=== PATIENT | male | born 1955 | race Caucasian/White ===

== ENCOUNTER 2020-01-03 08:15 | Outpatient (CLI) | payer MEDICARE, OTHER, SELFPAY ==
--- NOTE | ~2020-01-03 | US_ITS ---
EXAMINATION: US carotid duplex BI DATE: 01/03/2020 08:47 INDICATION: Right carotid bruit. TECHNIQUE: Grayscale, color Doppler, and pulsed Doppler images of the cervical carotid arteries were obtained. The degree of vessel stenosis is placed in one of the following categories: normal, <50%, 5 0-69%, >=70% but less than near-occlusion, near-occlusion, or total occlusion. Note that percent sten osis relative to normal distal artery lumen diameter is indirectly measured from velocity measurement s as described by Yvan, et al. Radiology 2003; 229:340-346. COMPARISON: MRA neck 12/19/2011 FINDINGS: RIGHT: The right common carotid artery (CCA) peak systolic velocity (PSV) is 101 cm/s. The right internal ca rotid artery (ICA) PSV is 108 cm/s. The right ICA end-diastolic velocity (EDV) is 30 cm/s. The right ICA/CCA PSV ratio is 1.1. Grayscale and color Doppler images yield an estimate of 0% diameter reducti on from plaque in the ICA. There is antegrade flow in the right vertebral artery. LEFT: The left CCA PSV is 104 cm/s. The left ICA PSV is 100 cm/s. The left ICA EDV is 35 cm/s. The left ICA /CCA PSV ratio is 1.0. Grayscale and color Doppler images yield an estimate of 0% diameter reduction from plaque in the ICA. There is antegrade flow in the left vertebral artery. IMPRESSION: 1. Normal internal carotid arteries. Reviewed, dictated and finalized at location A.
== END 2020-01-03 08:16 | disposition home or self-care (01) ==
PROVIDERS: PCP Internal Medicine; Visit Provider Internal Medicine
DX: R09.89 Other specified symptoms and signs involving the circulatory and respiratory systems (principal)
CPT/HCPCS: 93880

== ENCOUNTER 2020-08-25 14:31 | Outpatient (CLI) | payer MEDICARE, SELFPAY ==
[2020-08-25 15:32] LABS: SARS-CoV-2 Ag Negative (Negative)
[2020-08-28 18:27] LABS: SARS-CoV-2 RNA PCR Negative
== END 2020-08-25 14:32 | disposition home or self-care (01) ==
LOC: CHSLAB 14:33
PROVIDERS: PCP Internal Medicine; Visit Provider Internal Medicine
DX: R05 Cough (principal); R09.81 Nasal congestion; Z20.822 Contact with and (suspected) exposure to COVID-19
CPT/HCPCS: 87426; C9803; U0003; U0005

== ENCOUNTER 2020-08-29 10:00 | Outpatient (CLI) | payer MEDICARE, OTHER, SELFPAY ==
--- NOTE | ~2020-08-29 | CT_ITS ---
EXAMINATION: CT sinus wo con DATE: 08/29/2020 10:25 INDICATION: Chronic sinusitis TECHNIQUE: Computed tomography (CT) of the paranasal sinuses was performed without intravenous contra st. The dose-length product was 306.67 mGy-cm. Automated exposure control and iterative reconstructio n technique were employed. COMPARISON: CT dated 12/18/2011 FINDINGS: There is mucosal thickening of the ethmoid, sphenoid and maxillary sinuses. There is leftwa rd nasal septal deviation. There is right-sided ree bullosa. There are surgical changes of the ost iomeatal units. Mastoids are pneumatized. There is a scalp mass which is partially calcified at the m idline measuring 2.3 cm greatest dimension AP x1.6 cm on prior examination. IMPRESSION: 1. Mild chronic sinus disease primarily involving the ethmoid and maxillary sinuses. 2: Slight interval enlargement of scalp mass which is partially calcified. Consider percutaneous bio psy. Reviewed, dictated and finalized at location B. BODY MAN IMPRESSION: 1. Mild chronic sinus disease primarily involving the ethmoid and maxillary sin uses. 2: Slight interval enlargement of scalp mass which is partially calcified. Con larder cook percutaneous biopsy.
== END 2020-08-29 10:01 | disposition home or self-care (01) ==
LOC: CHSIMG 10:03
PROVIDERS: PCP Internal Medicine; Visit Provider Internal Medicine
DX: J32.9 Chronic sinusitis, unspecified (principal)
CPT/HCPCS: 70486

== ENCOUNTER → 2020-10-17 07:39 | Outpatient (CLI) | payer MEDICARE, OTHER, SELFPAY ==
--- NOTE | ~2020-10-17 | US_ITS ---
EXAMINATION: US right upper quadrant EXAM DATE: 10/17/2020 08:12 INDICATION: Epigastric pain. TECHNIQUE: Multiple grayscale and Doppler images of the abdomen right upper quadrant were obtained (b y a technologist who performed the scan) and subsequently reviewed. Comparison is made to prior exami nation from 09/08/2018. FINDINGS: The pancreatic head and body are normal in appearance. The pancreatic tail is not visualized. The l iver has normal echogenicity and contour. There are no focal liver lesions identified. There is no evidence of intrahepatic biliary duct dilation. Portal venous flow was seen in the hepatopedal, nor mal direction and has normal Doppler waveform. No right-sided hydronephrosis. Common bile duct measures 6 mm, which is normal. The gallbladder fossa is unremarkable. IMPRESSION: 1. Unremarkable abdominal ultrasound exam. Reviewed, dictated and finalized at location A.
== END ==
DX: R10.13 Epigastric pain (principal)
CPT/HCPCS: 76705

== ENCOUNTER 2021-08-06 15:08 | Outpatient (CLI) | payer MEDICARE, OTHER, SELFPAY ==
--- NOTE | ~2021-08-06 | XR_ITS ---
EXAMINATION: XR chest 2V DATE: 08/06/2021 15:31 INDICATION: Chronic cough. TECHNIQUE: Frontal and lateral views of the chest were obtained. COMPARISON: Chest single view 02/01/2016 FINDINGS: There is mild scarring at the lung apices. No pleural effusion or pneumothorax. The heart s ize is normal. Surgical clips in the right upper quadrant are likely from cholecystectomy. IMPRESSION: 1. Mild scarring at the lung apices. Reviewed, dictated and finalized at location A. ONATION EQUIPMENT OPERATOR
[2021-08-06 15:35] LABS: Basophils Absolute Auto 0.04 K/mm3 (0.00-0.10); Basophils Percent Auto 0.7 % (0.0-1.0); Eosinophils Absolute Auto 0.21 K/mm3 (0.02-0.50); Eosinophils Percent Auto 3.8 % (1.0-6.0); Hemoglobin 15.1 g/dL (12.4-15.3); Immature Granulocyte Absolute 0.01 K/mm3 (0.00-0.00); Immature Granulocyte Percent A 0.2 % (0.0-0.0); Lymphocytes Absolute Auto 1.83 K/mm3 (1.10-4.50); Lymphocytes Percent Auto 33.3 % (18.0-42.0); Mean Corpuscular HGB Conc 33.6 g/dL (32.0-36.0); Mean Corpuscular Hemoglobin 30.3 pg (27.0-31.0); Mean Corpuscular Volume 90.4 fL (78.0-102.0); Mean Platelet Volume 11.8 fl (8.7-11.0); Monocytes Absolute Auto 0.59 K/mm3 (0.10-0.90); Monocytes Percent Auto 10.7 % (2.0-11.0); Neutrophils Absolute Auto 2.8 K/mm3 (1.7-7.2); Neutrophils Percent Auto 51.3 % (50.0-70.0); Platelet Count Result 151 K/mm3 (150-420); Red Blood Count 4.98 M/mm3 (4.70-6.10); Red Cell Distribution Width 12.5 % (11.6-14.4)
[2021-08-06 15:46] LABS: White Blood Count 5.5 K/mm3 (4.8-10.8)
[2021-08-09 00:29] LABS: Immunoglobulin E 23 kU/L (<=114)
== END 2021-08-06 15:09 | disposition home or self-care (01) ==
LOC: CHSLAB 15:10
PROVIDERS: PCP Internal Medicine; Visit Provider Internal Medicine
DX: R05.3 Chronic cough (principal); J32.9 Chronic sinusitis, unspecified
CPT/HCPCS: 36415; 71046; 82785; 85025

== ENCOUNTER 2021-08-21 10:00 | Outpatient (RCR) | payer MEDICARE, OTHER, SELFPAY | END 2021-11-13 23:59 | disposition home or self-care (01) | LOC: CHSCARD 10:00 | PROVIDERS: PCP Internal Medicine; Visit Provider Internal Medicine | DX: R05.3 Chronic cough (principal); R06.2 Wheezing | CPT/HCPCS: 94060; 94726; 94729; 95012 ==

== ENCOUNTER 2021-12-14 16:35 | Outpatient (CLI) | payer MEDICARE, SELFPAY ==
[2021-12-14 17:44] LABS: SARS-CoV-2 RNA PCR Positive (Negative)
== END 2021-12-14 16:36 | disposition home or self-care (01) ==
LOC: CHSLAB 16:39
PROVIDERS: PCP Internal Medicine; Visit Provider Nurse Practitioner Family
DX: U07.1 COVID-19 (principal); J06.9 Acute upper respiratory infection, unspecified; R50.9 Fever, unspecified
CPT/HCPCS: C9803; U0003; U0005

== ENCOUNTER 2022-01-29 12:14 | Outpatient (CLI) | payer MEDICARE, OTHER, SELFPAY ==
--- NOTE | 2022-02-18 15:01 | WPDHOLTEREM ---
Holter/Event Monitor Holter/Event Monitor Date of procedure: 02/18/22 Holter/Event Procedure: Event Monitor Indications: Palpitations Conclusion: 1. 9 days event monitor between 01/29/22-02/09/22. There are 15 available transmissions for analysis. 2. Predominant rhythm is sinus rhythm. HR range 50-147 bpm; average HR 74 bpm. 3. There are occasional premature supraventricular complexes with total burden of <1%. There is one episode of supraventricular tachycardia at 147 bpm lasting 17 beats on 02/06/22 at 03:20. 4. There are occasional premature ventricular complexes with total burden of <1%. No ventricular tachycardia. 5. No significant pauses greater than 2 seconds. 6. Patient reports 1 episode of symptom other than listed which demonstrate sinus rhythm at 67 bpm.
== END 2022-01-29 12:15 | disposition home or self-care (01) ==
PROVIDERS: PCP Internal Medicine; Visit Provider Internal Medicine
DX: R00.2 Palpitations (principal)
CPT/HCPCS: 93270

== ENCOUNTER → 2022-04-23 07:41 | Outpatient (CLI) | payer MEDICARE, OTHER, SELFPAY ==
--- NOTE | ~2022-04-23 | US_ITS ---
EXAMINATION: US right upper quadrant DATE: 04/23/2022 08:17 INDICATION: Heartburn. Gastroesophageal reflux disease. TECHNIQUE: Multiple grayscale and Doppler ultrasound images of the abdomen were obtained. COMPARISON: Ultrasound 10/17/2020 FINDINGS: The visualized portions of the head and body of the pancreas are normal. The liver is frances l without focal lesion. There is normal flow in main portal vein. The gallbladder is absent. The comm on duct is normal and measures 5 mm. There is a 13 mm cyst in right kidney. IMPRESSION: 1. No etiology for the patient's symptoms. Reviewed, dictated and finalized at location B.
== END ==
PROVIDERS: PCP Internal Medicine
DX: R12 Heartburn (principal)
CPT/HCPCS: 76705

== ENCOUNTER 2022-07-10 01:19 | Emergency (ER) | payer MEDICARE, OTHER, SELFPAY ==
[2022-07-10] VITALS (11 sets, daily range): BP systolic 120–135; BP diastolic 88–110; PULSE 95–124; RESP 10–20; TEMP 36.6; O2SAT 92–100
--- NOTE | ~2022-07-10 | XR_ITS ---
EXAMINATION: XR chest 1V portable DATE: 07/10/2022 02:13 INDICATION: Atrial fibrillation with palpitations TECHNIQUE: frontal view of the chest was obtained. COMPARISON: 08/06/2021 FINDINGS: Again seen is mild biapical pleural-parenchymal scarring. No other airspace opacities, pulmonary irene a, pleural effusion or pneumothorax. The cardiomediastinal silhouette is normal. Visualized bones and soft tissues are unremarkable. IMPRESSION: 1. Mild biapical pleural-parenchymal scarring. No acute cardiopulmonary disease. Reviewed, dictated and finalized at location A. CULTURAL PRODUCE SORTER IMPRESSION: 1. Mild biapical pleural-parenchymal scarring. No acute cardiopulmonary disease .
--- NOTE | 2022-07-10 01:22 | ED.ARRPALP ---
HPI - Arrhythmia/Palpitations General Chief Complaint: Arrhythmia/Palpitations Stated Complaint: tachycardia Time Seen by Provider: 07/10/22 01:21 Source: patient Mode of arrival: ambulatory Limitations: no limitations History of Present Illness HPI narrative: 67-year-old history 80 IBS hypertension dyslipidemia, SVT diagnosed on Holter monitor in February of this presents to the ER with -- palpitation over the past 6 hours. His Apple watch indicated that he had atrial fibrillation. -- Increased tiredness no chest pain /shortness of breath/lightheadedness. Patient had a negative Exercise stress test 4 months ago. MD complaint: rapid heart beat Onset (ago): hour(s) ( Started 6 hours ago) Duration: constant Severity: moderate Context: occurred during rest Arrhythmia history: SVT Associated symptoms: denies other symptoms Related Data Home Medications Medication Instructions Recorded Confirmed alprazolam 0.5 mg tablet 0.5 mg PO .Q8 hours PRN anxiety 06/03/19 dexlansoprazole 60 mg 60 mg PO DAILY 06/03/19 capsule,biphase delayed release (Dexilant) fluticasone propionate 50 1 spray intranasal DAILY 06/03/19 mcg/actuation nasal spray,suspension tamsulosin 0.4 mg capsule 0.4 mg PO DAILY 06/03/19 Allergies Allergy/AdvReac Type Severity Reaction Status Date / Time No Known Allergies Allergy Verified 06/25/19 08:46 Review of Systems Review of Systems: All systems reviewed & are unremarkable except as noted in HPI and below Constitutional: Constitutional: Reports as per HPI, Reports no additional constitutional complaints and Reports weakness Eyes: Eyes: Reports as per HPI and Reports no additional eye complaints ENT: Reports system reviewed and no additional complaints, except as documented and Reports as per HPI Cardiovascular: Cardiovascular: Reports as per HPI, Reports no additional cardiovascular complaints and Reports palpitations Respiratory: Respiratory: Reports as per HPI and Reports no additional respiratory complaints Gastrointestinal: Gastrointestinal: Reports as per HPI and Reports no additional gastrointestinal complaints Genitourinary: Genitourinary: Reports no additional male genitourinary complaints and Reports as per HPI Musculoskeletal: Musculoskeletal: Reports no additional musculoskeletal complaints and Reports as per HPI Integumentary/Breasts: Skin/Breast: Reports system reviewed and no additional complaints, except as docu and Reports as per HPI Neurologic: Reports system reviewed and no additional complaints, except as documented, Reports as per HPI and Reports other ( history of benign essential tremor) Psychiatric: Psychiatric: Reports no additional psychiatric complaints and Reports as per HPI Endocrine: Endocrine: Reports no additional endocrine complaints and Reports as per HPI Hematologic/Lymphatic: Hematologic/Lymphatic: Reports no additional hematologic/lymphatic complaints and Reports as per HPI Allergic/Immunologic: Allergic/Immunologic: Reports no additional allergic/immunologic complaints and Reports as per HPI [facility] Past Medical History Medical History (Updated 07/10/22 @ 03:20 by Jonathan Jean Baptiste MD) Benign essential tremor FAMILIA (generalized anxiety disorder) GERD (gastroesophageal reflux disease) Hypertension IBS (irritable bowel syndrome) SVT (supraventricular tachycardia) Surgical History Surgical History History of cholecystectomy October 2018 History of hernia repair Hx of cataract surgery Social History Social History Smoking status: Never smoker Second hand tobacco smoke exposure: No Alcohol intake: current Drinks per week: 1 Alcohol use details: He typically consumes wine. Substance use: never Additional occupation/education comments: Prior Occupation at [employer]. Gender identity (if verbalized by the
--- NOTE | 2022-07-10 01:24 | ECG_ITS ---
Measurements Intervals [place] Rate: 120 P: [place]: 0 QRS: 2 QRSD: 97 T: 49 QT: 304 QTc: 431 Interpretive Statements ATRIAL FIBRILLATION WITH RAPID VENTRICULAR RESPONSE INCOMPLETE RIGHT BUNDLE BRANCH BLOCK [90+ ms QRS DURATION, TERMINAL R IN V1/V2, 40+ ms S IN I/aVL/V4/V5/V6] ABNORMAL ECG NO PREVIOUS ECG AVAILABLE FOR COMPARISON Electronically Signed On 07-11-2022 7:17:01 ULTRASONIC HAND SOLDERER by Frankie John M.D.
[2022-07-10 01:45] LABS: Basophils Absolute Auto 0.05 K/mm3 (0.00-0.10); Basophils Percent Auto 0.8 % (0.0-1.0); Eosinophils Percent Auto 3.2 % (1.0-6.0); Hematocrit 43.9 % (37.0-46.0); Hemoglobin 14.8 g/dL (12.4-15.3); Immature Granulocyte Absolute 0.01 K/mm3 (0.00-0.00); Immature Granulocyte Percent A 0.2 % (0.0-0.0); Lymphocytes Absolute Auto 1.99 K/mm3 (1.10-4.50); Lymphocytes Percent Auto 32.3 % (18.0-42.0); Mean Corpuscular HGB Conc 33.7 g/dL (32.0-36.0); Mean Corpuscular Hemoglobin 29.8 pg (27.0-31.0); Mean Corpuscular Volume 88.5 fL (78.0-102.0); Mean Platelet Volume 11.7 fl (8.7-11.0); Monocytes Absolute Auto 0.63 K/mm3 (0.10-0.90); Monocytes Percent Auto 10.2 % (2.0-11.0); Neutrophils Absolute Auto 3.3 K/mm3 (1.7-7.2); Neutrophils Percent Auto 53.3 % (50.0-70.0); Platelet Count Result 142 K/mm3 (150-420); Red Blood Count 4.96 M/mm3 (4.70-6.10); Red Cell Distribution Width 12.5 % (11.6-14.4); White Blood Count 6.2 K/mm3 (4.8-10.8)
[2022-07-10 01:59] LABS: Partial Thromboplastin Time 31.2 SEC (23.90-30.70)
[2022-07-10] MEDS: METOPROLOL TARTRATE INJ 5 MG/5 ML VIAL IV PUSH (01:59)
[2022-07-10 02:06] LABS: Lactic Acid Reflex 1.1 mmol/L (0.4-2.0)
[2022-07-10 02:09] LABS: Alanine Aminotransferase 35 U/L (16-63); Albumin Level 3.7 g/dL (3.4-5.0); Alkaline Phosphatase 67 U/L (46-116); Anion Gap 8 mmol/L (8-16); Aspartate Amino Transferase 24 U/L (15-37); Bilirubin,Total 1.7 mg/dL (0.00-1.00); Blood Urea Nitrogen 13 mg/dL (7-18); Calcium 8.7 mg/dL (8.5-10.1); Carbon Dioxide 28 mmol/L (21-32); Chloride 106 mmol/L (98-108); Estimated Glomerular Filt Rate > 60; Glucose 112 mg/dL (70-99); Magnesium 1.9 mg/dL (1.8-2.4); NT Pro B Type Natriuretic Pept 180 pg/mL (0-125); Osmolality Calculated 295 mOsm/kg (285-295); Potassium 3.8 mmol/L (3.5-5.1); Sodium 142 mmol/L (136-145); Thyroid Stimulating Hormone 3.08 uIU/mL (0.36-3.74); Total Protein 6.8 g/dL (6.4-8.2); Troponin I 6.5 ng/L (0.00-60.4)
[2022-07-10] MEDS: dilTIAZem 100 MG/100 ML 100 MG/100 ML BAG IV CONT (03:28)
== END 2022-07-10 04:22 | disposition short-term general hospital (02) ==
PROVIDERS: Emergency Provider Internal Medicine Critical Care Medicine; PCP Internal Medicine
DX: I48.91 Unspecified atrial fibrillation (principal); I10 Essential (primary) hypertension; E78.5 Hyperlipidemia, unspecified; Z79.899 Other long term (current) drug therapy
CPT/HCPCS: 36415; 71045; 80053; 83605; 83735; 83880; 84443; 84484; 85025; 85380; 85610; 85730; 93005; 96365; 96375; 99284

== ENCOUNTER 2022-10-28 09:28 | Outpatient (CLI) | payer MEDICARE, OTHER, SELFPAY ==
[2022-10-28 09:55] LABS: Hematocrit 44.9 % (37.0-46.0); Hemoglobin 14.9 g/dL (12.4-15.3); Mean Corpuscular HGB Conc 33.2 g/dL (32.0-36.0); Mean Corpuscular Hemoglobin 29.6 pg (27.0-31.0); Mean Corpuscular Volume 89.3 fL (78.0-102.0); Mean Platelet Volume 11.8 fl (8.7-11.0); Platelet Count Result 150 K/mm3 (150-420); Red Blood Count 5.03 M/mm3 (4.70-6.10); Red Cell Distribution Width 12.5 % (11.6-14.4); White Blood Count 3.6 K/mm3 (4.8-10.8)
[2022-10-28 09:56] LABS: Appearance Urine Clear (Clear); Bilirubin Urine Negative (Negative); Blood Urine 2+ (Negative); Color Urine Yellow (Yellow); Glucose Urine UA Negative (Negative); Ketones Urine Negative (Negative); Leukocyte Esterase Ur Negative (Negative); Nitrate Urine Negative (Negative); Protein Urine Negative (Negative); Specific Grav Ur 1.015 (1.010-1.020); Urobilinogen Urine 0.2 mg/dL (0.2-1.0)
[2022-10-28 10:01] LABS: Add Urine Microscopic? YES; Bacteria Urine Rare /hpf; Mucus Urine Rare /lpf; WBC Urine None seen /hpf (0-3)
[2022-10-28 10:22] LABS: Hemoglobin A1C 5.7 % (<5.7)
[2022-10-28 10:26] LABS: Band Neutrophils Percent 0 % (0-6); Eosinophils Absolute Manual 0.18 K/mm3 (0.02-0.5); Eosinophils Percent Manual 5 % (1-6); Lymphocytes Absolute Manual 1.44 K/mm3 (1.1-4.5); Lymphocytes Percent Manual 40 % (18-44); Monocytes Absolute Manual 0.18 K/mm3 (0.1-0.90); Monocytes Percent Manual 5 % (3-9); Neutrophils Percent Manual 50 % (46-73); Platelet Estimate Adequate (Adequate); Total Cells Counted 100
[2022-10-28 11:30] LABS: Alanine Aminotransferase 26 U/L (16-63); Albumin Level 3.8 g/dL (3.4-5.0); Alkaline Phosphatase 66 U/L (46-116); Anion Gap 8 mmol/L (8-16); Aspartate Amino Transferase 20 U/L (15-37); Bilirubin,Total 1.3 mg/dL (0.00-1.00); Blood Urea Nitrogen 10 mg/dL (7-18); Calcium 8.9 mg/dL (8.5-10.1); Carbon Dioxide 29 mmol/L (21-32); Chloride 107 mmol/L (98-108); Cholesterol 203 mg/dL (0-200); Creatine Kinase 66 U/L (39-308); Estimated Glomerular Filt Rate > 60; Glucose 100 mg/dL (70-99); HDL Direct 60 mg/dL (40-60); LDL Cholesterol Calculated 133 mg/dL (<130); Osmolality Calculated 297 mOsm/kg (285-295); Potassium 4.5 mmol/L (3.5-5.1); Sodium 144 mmol/L (136-145); Total Protein 6.7 g/dL (6.4-8.2); Triglycerides 51 mg/dL (0-150); Vitamin B12 340 pg/mL (193-986)
[2022-10-31 03:43] LABS: Prolactin 6.7 ng/mL (***)
== END 2022-10-28 09:29 | disposition home or self-care (01) ==
PROVIDERS: PCP Internal Medicine; Visit Provider Internal Medicine
DX: E78.2 Mixed hyperlipidemia (principal); I10 Essential (primary) hypertension; R73.01 Impaired fasting glucose; G62.9 Polyneuropathy, unspecified
CPT/HCPCS: 36415; 80053; 80061; 81001; 82550; 82607; 83036; 84146; 85025

== ENCOUNTER 2022-11-04 16:32 | Outpatient (CLI) | payer MEDICARE, OTHER, SELFPAY | END 2022-11-04 16:33 | disposition home or self-care (01) | LOC: CHSLAB 16:34 | PROVIDERS: PCP Internal Medicine; Visit Provider Internal Medicine | DX: R31.9 Hematuria, unspecified (principal); N41.9 Inflammatory disease of prostate, unspecified | CPT/HCPCS: 36415; 84153 ==

== ENCOUNTER 2022-12-31 09:33 | Outpatient (CLI) | payer MEDICARE, SELFPAY ==
[2022-12-31 09:59] LABS: Basophils Absolute Auto 0.02 K/mm3 (0.00-0.10); Basophils Percent Auto 0.4 % (0.0-1.0); Eosinophils Absolute Auto 0.06 K/mm3 (0.02-0.50); Eosinophils Percent Auto 1.1 % (1.0-6.0); Hematocrit 43.5 % (37.0-46.0); Hemoglobin 14.4 g/dL (12.4-15.3); Immature Granulocyte Absolute 0.01 K/mm3 (0.00-0.00); Immature Granulocyte Percent A 0.2 % (0.0-0.0); Immature Platelet Fraction Pct 5.9 % (1.0-7.0); Lymphocytes Absolute Auto 1.47 K/mm3 (1.10-4.50); Lymphocytes Percent Auto 27.3 % (18.0-42.0); Mean Corpuscular HGB Conc 33.1 g/dL (32.0-36.0); Mean Corpuscular Hemoglobin 29.6 pg (27.0-31.0); Mean Corpuscular Volume 89.5 fL (78.0-102.0); Mean Platelet Volume 11.8 fl (8.7-11.0); Monocytes Absolute Auto 0.43 K/mm3 (0.10-0.90); Neutrophils Absolute Auto 3.4 K/mm3 (1.7-7.2); Platelet Count Result 141 K/mm3 (150-420); Red Blood Count 4.86 M/mm3 (4.70-6.10); Red Cell Distribution Width 12.5 % (11.6-14.4); White Blood Count 5.4 K/mm3 (4.8-10.8)
[2022-12-31 10:38] LABS: Alanine Aminotransferase 25 U/L (16-63); Albumin Level 3.8 g/dL (3.4-5.0); Alkaline Phosphatase 48 U/L (46-116); Anion Gap 8 mmol/L (8-16); Aspartate Amino Transferase 18 U/L (15-37); Bilirubin,Total 1.8 mg/dL (0.00-1.00); Blood Urea Nitrogen 11 mg/dL (7-18); Calcium 8.9 mg/dL (8.5-10.1); Carbon Dioxide 29 mmol/L (21-32); Chloride 106 mmol/L (98-108); Cholesterol 171 mg/dL (0-200); Creatine Kinase 100 U/L (39-308); Estimated Glomerular Filt Rate > 60; Glucose 117 mg/dL (70-99); HDL Direct 58 mg/dL (40-60); LDL Cholesterol Calculated 102 mg/dL (<130); Osmolality Calculated 296 mOsm/kg (285-295); Potassium 3.9 mmol/L (3.5-5.1); Sodium 143 mmol/L (136-145); Total Protein 6.5 g/dL (6.4-8.2); Triglycerides 55 mg/dL (0-150)
== END 2022-12-31 09:34 | disposition home or self-care (01) ==
LOC: CHSLAB 09:38
PROVIDERS: PCP Internal Medicine; Visit Provider Internal Medicine
DX: E78.2 Mixed hyperlipidemia (principal); D72.819 Decreased white blood cell count, unspecified
CPT/HCPCS: 36415; 80053; 80061; 82550; 85025; 85055

== ENCOUNTER 2023-01-15 10:54 | Outpatient (CLI) | payer MEDICARE, OTHER, SELFPAY ==
--- NOTE | ~2023-01-15 | CT_ITS ---
Non-contrast CT scan of the Abdomen and Pelvis Clinical indication: Chronic prostatitis Technique: 2.5 mm axial scans were obtained through the abdomen and pelvis without intravenous or or al contrast. Dose reduction technique was used on this scan by utilizing automated exposure control a nd iterative reconstruction technique. The dose-length product (DLP) was 419.99 mGy-cm. COMPARISON: 08/30/2008 Findings: Images through the lung bases reveal no abnormalities. There is no evidence of renal or ureteral calculi. The kidneys and the ureters are nondilated. The liver, spleen, pancreas, and adrenals appear normal. Cholecystectomy clips are noted. There is no aortic aneurysm. There is no evidence of bowel obstruction. Images through the pelvis were performed. There is no evidence of ascites or lymphadenopathy. Urinary bladder unremarkable. Prostate gland is enlarged. Impression: Enlarged prostate gland. Reviewed, dictated and finalized at [facility]. Impression: Enlarged prostate gland.
== END 2023-01-15 10:55 | disposition home or self-care (01) ==
PROVIDERS: PCP Internal Medicine; Visit Provider Urology
DX: N41.1 Chronic prostatitis (principal)
CPT/HCPCS: 74176

== ENCOUNTER 2023-03-07 08:03 | Outpatient (CLI) | payer MEDICARE, OTHER, SELFPAY ==
--- NOTE | ~2023-03-07 | CT_ITS ---
EXAMINATION: CT abdomen pelvis w con DATE: 03/07/2023 08:55 INDICATION: Enlarged prostate. Lower urinary tract symptoms. TECHNIQUE: Computed tomography (CT) of the abdomen and pelvis was performed with 100 mL Omnipaque 350 intravenous contrast. Automated exposure control and iterative reconstruction technique were employe d. The dose-length product was 417.40 mGy-cm. COMPARISON: CT abdomen and pelvis 01/15/2023 FINDINGS: The visualized portions of the lung bases are clear without pneumonia or pleural effusion. The heart size is normal. No pericardial effusion. Left hepatic lobe is small. There are changes of c holecystectomy. The spleen, pancreas, adrenal glands, and left kidney are normal. There is cortical t hinning of right kidney. There is a 16 mm cyst in right kidney. The prostate is moderately enlarged. There are no dilated loops of bowel. The appendix is normal. There are no pathologically enlarged lym ph nodes. There is no free intraperitoneal fluid. There are changes of right inguinal hernia repair. There is mild lumbar spondylosis. IMPRESSION: 1. Moderately enlarged prostate. Reviewed, dictated and finalized at location A.
[2023-03-07 08:20] LABS: Estimated Glomerular Filt Rate > 60
== END 2023-03-07 08:04 | disposition home or self-care (01) ==
LOC: CHSIMG 08:05
PROVIDERS: PCP Internal Medicine; Visit Provider Nurse Practitioner Adult Health
DX: R10.2 Pelvic and perineal pain (principal); N40.1 Benign prostatic hyperplasia with lower urinary tract symptoms
CPT/HCPCS: 74177; Q9967

== ENCOUNTER 2024-05-13 14:32 | Outpatient (CLI) | payer MEDICARE, OTHER, SELFPAY ==
--- NOTE | ~2024-05-13 | XR_ITS ---
XR hip LT min 2V 05/13/2024 14:53 Indication: Left hip pain Procedure: 2 views left hip Comparison: No prior studies for comparison. Findings: No fracture, subluxation or dislocation. There is anatomic alignment. No soft tissue abnorm ality. No foreign bodies. Impression: 1: No significant bone or joint abnormality. Reviewed, dictated and finalized at location B. Impression: 1: No significant bone or joint abnormality.
--- NOTE | ~2024-05-13 | XR_ITS ---
XR shoulder LT min 2V 05/13/2024 14:53 Indication: Left shoulder pain Procedure: 4 views left shoulder Comparison: No prior studies for comparison. Findings: No fracture, subluxation or dislocation. No significant soft tissue abnormality. No foreign bodies. Impression: 1: No significant bone or joint abnormality. Reviewed, dictated and finalized at location B. Impression: 1: No significant bone or joint abnormality.
== END 2024-05-13 14:33 | disposition home or self-care (01) ==
LOC: CHSIMG 14:34
PROVIDERS: PCP Internal Medicine; Visit Provider Internal Medicine
DX: M25.512 Pain in left shoulder (principal); M25.552 Pain in left hip
CPT/HCPCS: 73030; 73502

== ENCOUNTER 2024-05-29 07:38 | Outpatient (CLI) | payer MEDICARE, OTHER, SELFPAY ==
--- NOTE | ~2024-05-29 | MR_ITS ---
EXAMINATION: MR shoulder LT wo con DATE: 05/29/2024 08:25 INDICATION: Left shoulder pain. TECHNIQUE: Magnetic resonance imaging (MRI) of the left shoulder was performed without intravenous co ntrast. Sequences included axial PD-weighted FS FSE, coronal oblique PD-weighted FS FSE and T2-weight ed FS FSE, and sagittal oblique T2-weighted FS FSE and T1-weighted FSE. COMPARISON: Left shoulder radiographs 05/13/2024 FINDINGS: Coracoacromial arch: The acromion undersurface is curved in morphology (type II). There is moderate acromioclavicular join t osteoarthritis. There is mild subacromial/subdeltoid bursitis. Rotator cuff: There is mild supraspinatus and infraspinatus tendinopathy. Teres minor tendon is normal. There is mi ld subscapularis tendinopathy. No tear. The rotator cuff muscle bellies are normal. Biceps tendon and glenoid labrum: Biceps tendon is in bicipital groove. There is mild intra-articular biceps tendinopathy. The glenoid labrum is intact. Fluid: There is no glenohumeral joint effusion. Bones/cartilage: Humeral head cartilage is normal. Glenoid cartilage is normal. IMPRESSION: 1. Moderate acromioclavicular joint osteoarthritis. 2. Mild subacromial/subdeltoid bursitis. 3. Mild intra-articular biceps tendinopathy. Reviewed, dictated and finalized at location A. WARDEN
== END 2024-05-29 07:39 | disposition home or self-care (01) ==
PROVIDERS: PCP Internal Medicine; Visit Provider Internal Medicine
DX: M25.512 Pain in left shoulder (principal); M19.012 Primary osteoarthritis, left shoulder; M75.52 Bursitis of left shoulder; M75.22 Bicipital tendinitis, left shoulder
CPT/HCPCS: 73221

== ENCOUNTER 2024-11-01 09:20 | Outpatient (CLI) | payer MEDICARE, SELFPAY ==
[2024-11-01 09:33] LABS: Mean Corpuscular HGB Conc 33.3 g/dL (32-36); Mean Corpuscular Hemoglobin 29.5 pg (27.0-31.0); Mean Corpuscular Volume 88.4 fL (78.0-102.0); Mean Platelet Volume 11.1 fl (8.7-11.0); Platelet Count Result 151 K/mm3 (150-420); Red Blood Count 5.09 M/mm3 (4.70-6.10); Red Cell Distribution Width 12.1 % (11.6-14.4); White Blood Count 4.1 K/mm3 (4.8-10.8)
[2024-11-01 09:43] LABS: Hemoglobin A1C 5.9 % (<5.7)
[2024-11-01 09:48] LABS: Add Urine Microscopic? YES; Appearance Urine Clear (Clear); Bilirubin Urine Negative (Negative); Blood Urine 1+ (Negative); Color Urine Light Yellow (Yellow); Glucose Urine UA Negative (Negative); Ketones Urine Negative (Negative); Leukocyte Esterase Ur Negative (Negative); Nitrate Urine Negative (Negative); Protein Urine Negative (Negative); Specific Grav Ur <= 1.005 (1.010-1.020); Urobilinogen Urine 0.2 mg/dL (0.2-1.0)
[2024-11-01 09:55] LABS: Bacteria Urine Rare /hpf; RBC Urine 0-2 /hpf (0-2); WBC Urine None seen /hpf (0-3)
--- OUTSIDE RECORDS SUMMARY | 2024-11-01 10:07 | XMS_ITS | Clinical Summary ---
Author Organization [facility] Address [address] [place] [address] Care Team Providers Care Macerator Operator Name Role Phone Yoana Bolden MD Primary Care Provider [phone] Ry Fuller MD Unavailable Unava Dima Tam MD Unavailable Allergies Active Allergy Reactions Criticality Noted Date Comments Seasonal Eyes Water & Itch 07/10/2022 Sulfa Antibiotics Nausea Only 04/04/2022 Medications lisinopril (PRINIVIL) 40 MG tablet Take 1 tablet (40 mg total) by mouth daily. 2 Active fluticasone propionate (FLONASE) 50 MCG/ACT nasal spray 2 sprays by Nasal route daily. Active tamsulosin (FLOMAX) 0.4 MG Cap Take 1 capsule (0.4 mg total) by mouth daily. Active vitamin B-12 (CYANOCOBALAMIN ) 500 MCG tablet Take 1 tablet (500 mcg total) by mouth daily. Active gabapentin (NEURONTIN) 400 MG capsule Take 1 capsule (400 mg total) by mouth 3 (three) times daily. 3 Active pravastatin (PRAVACHOL) 20 MG tablet Take 1 tablet (20 mg total) by mouth daily. DIRECTED 3 Active nortriptyline (PAMELOR) 25 MG capsule Take 1 capsule (25 mg total) by mouth nightly at bedtime. Active vitamin C (ASCORBIC ACID) 1000 MG tablet Take 1 tablet (1,000 mg total) by mouth daily. Active Vitamin D3 125 mcg Tab Take 1 tablet (125 mcg total) by mouth daily. Active esomeprazole (NEXIUM) 20 MG capsule Take 1 capsule (20 mg total) by mouth every morning before breakfast. Active coenzyme Q10 (CO Q-10) 50 MG capsule Take 1 capsule (50 mg total) by mouth daily. Active apixaban (ELIQUIS) 5 MG tablet TAKE 1 TABLET BY MOUTH TWICE A DAY FOR ATRIAL FIBRILLATION 60 tablet 11 Active Additional Information Patient taking differently: 5 mg Oral 2 times daily, Reported on 09/15/2024 Active Problems Problem Noted Date Diagnosed Date SVT (supraventricular tachycardia) ([facility]) Chronic anticoagulation 09/06/2024 Paroxysmal atrial fibrillation ([facility]/HCC [facility]) 07/10/2022 Encounters Date Type Department Care Team Description 10/12/2024 Telephone [facility] [address] [place] [address] Abdi Cerda MD Question 09/21/2024 Telephone [facility] [address] [place] [address] Abdi Cerda MD Question 09/15/2024 2:31 PM CATECHIST Anesthesia Event [facility] Public Health Epidemiologist [address] [place] [address] Pati Eldridge MD Bracco, Kendra A, RN 09/15/2024 11:54 AM CATECHIST - 09/16/2024 11:05 AM CATECHIST Hospital Encounter [facility] [address] [place] [address] Abdi Cerda MD Discharge Disposition: Home or Self Care (Routine Discharge) 09/15/2024 Travel 09/06/2024 11:39 AM CATECHIST - 09/06/2024 11:59 PM CATECHIST Hospital Encounter [facility] [address] [place] [address] Abdi Cerda MD Discharge Disposition: Home or Self Care (Routine Discharge) 09/06/2024 11:00 AM CATECHIST Office Visit [facility] [address] [place] [address] Deloris Sinha PA-C Follow Up 09/06/2024 Travel 09/06/2024 Orders Only [facility] [address] [place] [address] Abdi Cerda MD 09/02/2024 Orders Only [facility] [address] [place] [address] Deloris Sinha PA-C 08/26/2024 Telephone [facility] [address] [place] [address] Dima Cabrera MD Results 08/18/2024 Telephone [facility] [address] [place] [address] Abdi Cerda MD Schedule Procedure 08/04/2024 2:19 PM CATECHIST - 08/04/2024 11:59 PM CATECHIST Hospital Encounter [facility] [address] [place] [address] Dima Cabrera MD Discharge Disposition: Home or Self Care (Routine Discharge) 08/04/2024 Travel from Last 3 Months Family History Medical History Relation Comments Atrial fibrillation Brother Atrial fibrillation Daughter COPD Mother Relation Status Comments Brother Daughter Alive Father Mother Social History Tobacco Use Types Packs/Day Years Used Date Smoking Tobacco: Never Smokeless Tobacco: Never Tobacco Cessation:Counseling Given: Not Answered Alcohol Use Standard Drinks/Week Comments Yes 5 (1 standard drink = 0.6 oz pur e alcohol) 4-6 drinks per week Humiliation, Afraid, Rape, and Kick questionnair e Answer Date Recorded Within the last year, have y ou been afraid of your partner or ex-partner? No 07/10/2022 Within the last year, have y ou been humiliated or emotionally abused in other ways by your partner or ex-partner? No Within the last year, have y ou been kicked, hit, slapped, or otherwise physically hurt by your partner or ex-partner? No 07/10/2022 Within the last year, have y ou been raped or forced to have any kind of sexual activity by your partner or ex-partner? No 07/10/2022 Social Connection and Isolat ion Panel [NHANES] Answer Date Recorded In a typical week, how many times do you talk on the phone with family, friends, or neighbors? More than three times a week 07/10/2022 How often do you get togethe r with friends or relatives? Twice a week 07/10/2022 How often do you attend chur or tenriism services? More than 4 times per year 07/10/2022 Do you belong to any clubs o r organizations such as adventism groups, unions, fraternal or athletic groups, or school groups? No 07/10/2022 How often do you attend meet ings of the clubs or organizations you belong to? More than 4 times per year 07/10/2022 Are you , , di vorced, , never , or living with a partner? 07/10/2022 AUDIT-C Answer Date Recorded Q1: How often do you have a drink containing alc ohol? 2-3 times a week 07/10/2022 Q2: How many drinks containi ng alcohol do you have on a typical day when you are drinking? 1 or 2 07/10/2022 Q3: How often do you have si x or more drinks on one occasion? Never 07/10/2022 Overall Financial Resource Strain (CARDIA) Answe r Date Recorded How hard is it for you to pa y for the very basics like food, housing, medical care, and heating? Not hard at all 07/10/2022 PHQ-2 Answer Date Recorded Patient Health Questionnaire-2 Score 0 07/10/2022 [facility] of Occupat ional Health - Occupational Stress Questionnaire Answer Date Recorded Do you feel stress - tense, restless, nervous, or anxious, or unable to sleep at night because your mind is troubled all the time - these days? Not at all 07/10/2022 Exercise Vital Sign Answer Date Recorde d On average, how many days pe r week do you engage in moderate to strenuous exercise (like a brisk walk)? 3 days 07/10/2022 On average, how many minutes do you engage in exercise at this level? 60 min 07/10/2022 Hunger Vital Sign Answer Date Recorded Within the past 12 months, y ou worried that your food would run out before you got the money to buy more. Never true 07/10/20 Within the past 12 months, t he food you bought just didn't last and you didn't have money to get more. Never true 07/10/2022 PRAPARE - Transportation Answer Date Re corded In the past 12 months, has l ack of transportation kept you from medical appointments or from getting medications? No 06/21 In the past 12 months, has l ack of transportation kept you from meetings, work, or from getting things needed for daily living? No 07/10/2022 Housing Stability Vital Sign Answer Brendon e Recorded In the last 12 months, was t here a time when you were not able to pay the mortgage or rent on time? No 07/10/2022 In the last 12 months, how many places have you lived? 1 07/10/2022 In the last 12 months, was t here a time when you did not have a steady place to sleep or slept in a senior living (including now)? No 07/10/2022 Sex and Gender Information Value Date Recorded Sex Assigned at Male 08/04/2024 2:13 PM CATECHIST Legal Sex Male 11:16 PM CATECHIST Gender Identity Male 04/03/2022 7:22 AM CDT Sexual Orientation Not on file Last Filed Vital Signs Vital Sign Reading Time Taken Comments Blood Pressure 142/77 09/16/2024 7:57 AM CATECHIST Pulse 77 09/16/2024 7:57 AM CATECHIST Temperature 36.9 C (98.4 F) 09/16/2024 7:57 AM CATECHIST Respiratory Rate 20 09/16/2024 7:57 AM CATECHIST Oxygen Saturation 92% 09/16/2024 7:57 AM CATECHIST Inhaled Oxygen Concentration - - Weight 92.5 kg (203 lb 14.8 oz) 09/16/2024 5:00 AM CATECHIST Height 180.3 cm (5' 10.98 ) 09/15/2024 12:01 PM CATECHIST Body Mass Index 28.45 09/15/2024 12:01 PM CATECHIST Plan of Treatment Upcoming Encounters Date Type Department Care Team (Late st Contact Info) Description 12/16/2024 11:00 AM CDT Office Visit [facility] [address] [place] [phone] Deloris Sinha PA-C [address] [place] [address] 07/28/2025 2:00 PM CATECHIST Office Visit [facility] [address] Dima Cabrera MD [address] [place] [address] Health Maintenance Due Date Last Done Comments Colorectal Cancer Screening Colonoscopy (10 Years) 1955 Hepatitis C 1972 DTaP, Tdap and Td Vaccines ( 1 - Tdap) 1973 Zoster Vaccines (1 of 2) 2004 RSV Immunization or 60+ Years (1 - Risk 60-74 years 1-dose series) 2014 Annual Medicare Wellness Visit 2019 Pneumococcal Vaccine: 50+ Ye ars (1 of 1 - PCV) 2019 COVID-19 Vaccine (2023-2 5 season) 2024 Meningococcal B Vaccine Aged Out No l onger eligible based on patient's age to complete this topic Meningococcal Vaccine Aged Out No jacob patricio eligible based on patient's age to complete this topic RSV Immunizations Under 20 Months Aged Out No longer eligible based on patient's age to complete this topic Goals Goal Patient Goal Type Associated Problems Recent Progress Patient-Stated? Author Safety Patient/family will have appropriate support at home upon discharge Lifestyle No Melly Mata, RN Medical Devices Implanted Type Area Exchange Trouble Shooter Device Identifier Shelf Expiration Date Model / Serial / Lot Tecnis 1 Piece Iol With Tecnis Simplicity Delivery System Implanted:Qty: 1 on 07/19/2024 by Sherif Young MD at [facility] Right: Eye [employer] 08/24/2025 / [id number] / Procedures Procedure Name Priority Date/Time Associated Diagnosis Comments ECG 12-LEAD Routine 09/16/2024 6:33 AM CATECHIST Paroxysmal atrial fibrillation (CMS/HCC HHS/HCC) SVT (supraventricular tachycardia) (HHS/HCC) BASIC METABOLIC PANEL Routine 09/16/2024 4:36 AM CATECHIST Paroxysmal atrial fibrillation (CMS/HCC HHS/HCC) SVT (supraventricular tachycardia) (HHS/HCC) PROTHROMBIN TIME, VENOUS Routine 025 4:36 AM CATECHIST Paroxysmal atrial fibrillation (CMS/HCC HHS/HCC) SVT (supraventricular tachycardia) (HHS/HCC) CBC W/DIFF AUTOMATED Routine 09/16/2024 4:36 AM CATECHIST Paroxysmal atrial fibrillation (CMS/HCC HHS/HCC) SVT (supraventricular tachycardia) (HHS/HCC) ECG 12-LEAD Routine 09/15/2024 7:05 PM CATECHIST Paroxysmal atrial fibrillation (CMS/HCC HHS/HCC) SVT (supraventricular tachycardia) (HHS/HCC) XA A-FIB ABLATION Routine 09/15/2024 5:1 1 PM CATECHIST Persistent atrial fibrillation (CMS/HCC HHS/HCC) POCT ACTIVATED CLOTTING TIME - ISTAT DOCKED DEVICE Routine 09/15/2024 4:29 PM CATECHIST POCT ACTIVATED CLOTTING TIME - ISTAT DOCKED DEVICE Routine 09/15/2024 4:04 PM CATECHIST POCT ACTIVATED CLOTTING TIME - ISTAT DOCKED DEVICE Routine 09/15/2024 3:37 PM CATECHIST POCT ACTIVATED CLOTTING TIME - ISTAT DOCKED DEVICE Routine 09/15/2024 3:16 PM CATECHIST ECG 12-LEAD Routine 09/15/2024 12:19 PM CATECHIST ORDER FRESH FROZEN PLASMA Routine 09/15/2024 12:07 PM CATECHIST TYPE & SCREEN Routine 09/06/2024 11:49 AM CATECHIST Paroxysmal atrial fibrillation (CMS/HCC HHS/HCC) CBC W/DIFF AUTOMATED Routine 09/06/2024 11:49 AM CATECHIST Paroxysmal atrial fibrillation (CMS/HCC HHS/HCC) BASIC METABOLIC PANEL Routine 09/06/2024 11:49 AM CATECHIST Paroxysmal atrial fibrillation (CMS/HCC HHS/HCC) ELECTROCARDIOGRAM (NON MIDMARK ACQUIRED) Routine 09/06/2024 10:48 AM CATECHIST Paroxysmal atrial fibrillation (CMS/HCC HHS/HCC) CT HEART DIAG CALCIUM SCORE Routine 08/04/2024 2:53 PM CATECHIST Persistent atrial fibrillation (CMS/HCC HHS/HCC) from Last 3 Months Results * ECG 12 lead - in AM (09/16/2024 6:33 AM CATECHIST) Only the most recent of3 resultswithin the time period is included. 09/16/2024 6:33 AM CATECHIST Narrative [facility] - 09/16/2024 7:12 AM CATECHIST [place] [address] [place] [address] Test Date: 2024-09-16 Pat Name: RAFY MARTIN Department: 1 Room: [facility] Gender: Male Linux Programmer: Nuria : 1955 Requested By: ABDI CERDA Order Number: [id number] Reading MD: Abdi Cerda Measurements Intervals [place] Rate: 80 P: 3 TN: 154 QRS: -17 QRSD: 107 T: 51 QT: 393 QTc: 453 Interpretive Statements SINUS RHYTHM INCOMPLETE RIGHT BUNDLE BRANCH BLOCK CHIST Procedure Note Abdi Cerda MD - 09/16/2024 [facility] [address] [place] [address] Test Date: 2024-09-16 Pat Name: RAFY AMRTIN Department: 1 Room: 50A Gender: Male Linux Programmer: Nuria : 1955 Requested By: ABDI CERDA Order Number: [id number] Reading MD: Abdi Cerda Measurements Intervals [place] Rate: 80 P: 3 TN: 154 QRS: -17 QRSD: 107 T: 51 QT: 393 QTc: 453 Interpretive Statements SINUS RHYTHM INCOMPLETE RIGHT BUNDLE BRANCH BLOCK CHIST Abdi Cerda MD ECG ORDERABLES Final Res ult Performing Organization Address City/[facility]/ZIP Co de Phone Number [facility] * PROTIME/INR, VENOUS (09/16/2024 4:36 AM CATECHIST) PROTIME 12.2 9.4 - 12.5 SEC 09/16/2024 5:14 AM CATECHIST [facility] INR 1.1 0.8 - 1.1 09/16/2024 5:14 AM CATECHIST [facility] 09/16/2024 4:36 AM CATECHIST Abdi Cerda MD LABORATORY Final Res ult Performing Organization Address City/[facility]/ZIP Co de Phone Number [facility] [address] [id number], [id number] * (ABNORMAL) BASIC METABOLIC PANEL (09/16/2024 4:36 AM CATECHIST) Only the most recent of2 resultswithin the time period is included. SODIUM S/P/B 142 136 - 145 MMOL/L 09/16/2024 5:26 AM CATECHIST [facility] POTASSIUM S/P/B 3.8 3.5 - 5.1 MMOL/L 09/16/2024 5:26 AM CATECHIST [facility] CHLORIDE S/P/B 109 97 - 115 MMOL/L 09/16/2024 5:26 AM CATECHIST [facility] CO2 27.9 21.0 - 32.0 MMOL/L 09/16/2024 5:26 AM [facility] GLUCOSE 107(H) 74 - 106 MG/DL 09/16/2024 5:26 AM [facility] BUN 9 7 - 18 MG/DL 09/16/2024 5:26 AM [facility] CREATININE S/P/B 0.90 0.70 - 1.30 MG/DL 09/16/2024 5:26 AM [facility] CALCIUM S/P/B 8.6 8.5 - 10.1 MG/DL 09/16/2024 5:26 AM [facility] ANION GAP 5.1 2.0 - 10.0 MMOL/L 09/16/2024 5:26 AM [facility] OSMOLALITY (CALC) 293 MOSM/KG 025 5:26 AM [facility] Comment:REFERENCE RANGE NOT ESTABLISHED GFR ESTIMATE >90 >90 ML/MIN/1. 73 M2 09/16/2024 5:26 AM [facility] GFR NOTES GFR REFERENCE S: 09/16/2024 5:26 AM [facility] Comment: THE ESTIMATED GFR IS CALCULATED USING THE 2020 CKD-EPI EQUATION. THE FOLLOWING CATEGORIES FOR GRADING RENAL FUNCTION ARE RECOMMENDED BY THE INTERNATIONAL SOCIETY OF NEPHROLOGY (KDIGO 2012 CLINICAL PRACTICE GUIDELINE). G1,NORMAL OR HIGH: >89 ml/min/1.73 m2 G2,MILDLY DECREASED: 60-89 ml/min/1.73 m2 G3A,MILDLY TO MODERATELY DECREASED: 45-59 ml/min/1.73 m2 G3B,MODERATELY TO SEVERELY DECREASED: 30-44 ml/min/1.73 m2 G4,SEVERELY DECREASED: 15-29 ml/min/1.73 m2 G5,KIDNEY FAILURE: <15 ml/min/1.73 m2 09/16/2024 4:36 AM CATECHIST us Abdi Cerda MD LABORATORY Final Res ult [facility] [address] [place] [address], [id number] * (ABNORMAL) CBC W/DIFF AUTOMATED (09/16/2024 4:36 AM CATECHIST) Only the most recent of2 resultswithin the time period is included. WBC 6.21 4.00 - 10.80 x10'3/uL 09/16/2024 5:02 AM [facility] RBC 4.51 4.50 - 6.10 x10'6/uL 09/16/2024 5:02 AM [facility] HGB 13.2 12.0 - 16.0 G/DL 09/16/2024 5:02 AM [facility] HCT 40.0 37.0 - 52.0 % 09/16/2024 5:02 AM [facility] MCV 88.7 78.0 - 100.0 FL 09/16/2024 5:02 AM [facility] MCH 29.3 27.0 - 31.0 PG 09/16/2024 5:02 AM [facility] MCHC 33.0 33.0 - 36.0 G/DL 09/16/2024 5:02 AM [facility] RDW 13.0 11.5 - 14.5 % 09/16/2024 5:02 AM [facility] PLT 111(L) 150 - 350 x10'3/uL 09/16/2024 5:02 AM [facility] MPV 11.4(H) 7.4 - 10.4 FL 09/16/2024 5:02 AM [facility] DIFFERENTIAL TYPE AUTOMATED DIFFERENTIAL 09/16/2024 5:02 AM [facility] SEG NEUTROPHILS 58.1 % 5:02 AM [facility] LYMPHOCYTES 26.2 % 09/16/2024 5:02 AM CATECHIST [facility] MONOCYTES 12.6 % 09/16/2024 5:02 AM CATECHIST [facility] EOSINOPHILS 2.6 % 09/16/2024 5:02 AM CATECHIST [facility] BASOPHILS 0.3 % 09/16/2024 5:02 AM [facility] IMMATURE GRANS % 0.2 % 09/16/19 5:02 AM CATECHIST [facility] ABS. NEUTROPHILS 3.61 1.60 - 8.30 x10'3/uL 09/16/2024 5:02 AM CATECHIST [facility] ABS. LYMPHOCYTES 1.63 0.80 - 4.70 x10'3/uL 09/16/2024 5:02 AM CATECHIST [facility] ABS. MONOCYTES 0.78 0.00 - 1.50 x10'3/uL 09/16/2024 5:02 AM CATECHIST [facility] ABS. EOSINOPHILS 0.16 0.00 - 0.40 x10'3/uL 09/16/2024 5:02 AM CATECHIST [facility] ABS. BASOPHILS 0.02 0.00 - 0.20 x10'3/uL 09/16/2024 5:02 AM CATECHIST [facility] ABS. IMMATURE GRANULOCYTES 0.01 0.00 - 0.03 x10'3/uL 09/16/2024 5:02 AM CATECHIST [facility] ABS. NUCLEATED RBC'S 0.00 0.00 - 0.01 x10'3/uL 09/16/2024 5:02 AM CATECHIST [facility] NRBC % 0.0 % 09/16/2024 5:02 AM CATECHIST [facility] 09/16/2024 4:36 AM CATECHIST us Abdi Cerda MD LABORATORY Final Res ult [facility] [address], [place] [address] [phone] [id number] * XA A-FIB ABLATION (09/15/2024 5:11 PM CATECHIST) Anatomical Region Laterality Modality Cardiac Public Health Epidemiologist Narrative 09/15/2024 5:03 PM CATECHIST Abdi Cerda MD 09/15/2024 5:17 PM Cardiac Electrophysiology Procedure Note Patient name: Rafy Martin : 1955 YOANA BOLDEN MD LOS: 0 days DATE OF PROCEDURE: 09/15/2024 [employer]IGZAG ELASTIC ATTACHER: ABDI CERDA MD Procedure: Atrial fibrillation pulmonary vein isolation with pulsed field ablation Preprocedure diagnosis: Paroxysmal atrial fibrillation SVT Postprocedure diagnosis: Paroxysmal atrial fibrillation status post successful pulmonary vein isolation by pulsed field ablation SVT 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 Medications: Sedation provided by anesthesiology Findings: EP Procedures Performed: Comprehensive EP evaluation and Ablation of atrial fibrillation by pulmonary vein isolation 3D mapping using Eridan Technologyite X mapping system [14265] Left atrial pacing and recording [32815] Transseptal catheterization for left atrial access [82298] Intracardiac Echocardiography for procedure [79013] Administration of electrophysiologically active medication - isuprenaline [89713] Indications: Symptomatic paroxysmal atrial fibrillation SVT Fluoroscopic Time: See procedure record History: Please see pre-procedure H&P on the record. Procedure: The patient was brought to the Cardiac Electrophysiology Laboratory in a post-absorptive, fasting state. Informed consent was obtained. A peripheral IV was in place. Continuous electrocardiographic, blood pressure, oxygen saturation monitors were initiated. Self-adhesive cardioversion patches were positioned on the chest. The patient was in sinus rhythm during the procedure. The patient was prepped and draped in the usual sterile fashion. Ultrasound guidance was used for obtaining vascular access. Using ultrasound, bilateral femoral venous system was visualized and evaluated for potential access site. Bilateral femoral veins were patent. Ultrasound visualization of the vascular needle entry into the vessel wall was seen and modified Seldinger technique was used to achieve vascular access of bilateral femoral veins. Catheters were inserted as follows: A 7F SJM Livewire decapolar catheter was positioned in the CS from the left femoral vein. A CRD-2 quadrapolar catheter later was advanced from the left femoral vein to the AVJ (His Bundle) A SJM HD grid catheter was advanced from the right femoral vein to the LA after transseptal access for mapping. A JSN quadripolar catheter was advanced from the right femoral vein to the RV apex A SJM Viewflex intracardiac ultrasound catheter was advanced from the left femoral to the right atrium for ultrasound mapping. A [employer] versa cross sheath was advanced from the right femoral vein and used for achieving transseptal access and later switched for Faradrive sheath through which the mapping of the left atrium and later ablation, using a 31mm [place] scientific Farawave Pulsed Field ablation catheter. Twelve surface ECG leads and Intracardiac electrograms from the above locations were recorded during the study. Patient was in sinus rhythm at the beginning of the procedure. Medications administered: Sedation was administered and monitored by anesthesia provider. Heparin boluses were administered with a goal ACT of 300-400 seconds. The medication totals are available in the procedure log. 3D Mapping using the [employer] Precision mapping system [25096] Complex 3D mapping was performed. The Ensite Precision mapping system was used to evaluate and record the catheter position as well as carefully define anatomic and electroanatomic detail during both sinus rhythm. A 3D representation of the right atrium and later the left atrium was performed. EP study: Atrial pacing and recording was performed with the catheter locations detailed in the log. CS pacing of right atrium and left atrial pacing and recording were performed. AVJ recordings with identification and localization of the His electrogram were completed. Baseline intervals were as follows: TN 122ms QRS 108ms QT 370ms RR 648ms AH 74ms HV 50ms Antegrade Wenckebach was 320ms. VA wenkeback Both LA and CS pacing of the right atrium was performed. AV wendy curves were continuous with no AH jump. AERP was noted at 500/210ms. 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 We obtained transseptal access and attempted to map this rhythm however it degenerated repeated into atrial fibrillation and was cardioverted back to sinus rhythm with a 360J biphasic shock. 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 Repeated attempts to induce atrial tachycardia resulted in similar degeneration into atrial fibrillation. Effect of electrophysiologically-active medication - Isuprenaline [47498]: Medication Dosage/route Effects Isuprenaline up to 2mcg/min To facilitate induction of SVT, Look for extrapulmonary triggers for AF Intracardiac Echo [03144] utilized for ablation procedure Once coronary sinus catheter was placed and prior to transseptal catheterization, the [facility] Viewflex ICE catheter was manipulated into the right atrium and after transseptal access into the left atrium. In the home view, and with clockwise rotation of the catheter evaluation of the aortic valve, left atrial appendage left superior, left inferior pulmonary veins posterior wall of the left atrium and esophagus and right-side pulmonary veins were evaluated. Deflection of the catheter to the Cavo-tricuspid isthmus with clockwise rotation allowed visualization of the right-side pulmonary veins. The ICE imaging was also utilized for transseptal access as detailed below. Continuous ice imaging was performed during the procedure to monitor for complications and also to evaluate Farawave catheter positioning. At the conclusion of the procedure, catheters were removed, and the ICE catheter remained in position and was used to evaluate for pericardial effusion prior to removal of the ultrasound catheter. Transseptal Catheterization A transseptal approach was utilized to access the left atrium for mapping and ablation. This entailed using an Faradrive sheath and dilator from the right femoral vein. The Faradrive sheath and dilator were then advanced into the SVC over the guidewire under fluoroscopic guidance using Bebeto Versa Cross pigtail Radiofrequency wire, taking care to maintain the tip of the wire within the dilator. The Faradrive sheath, dilator and wire were then withdrawn under ICE and mapping system guidance in the KUWAITI projection. The right atrial pressure was recorded in the monitoring system. At intervals, the MELISSA projection on mapping system was used to maintain the tip of the dilator in line with the fossa ovalis. During gradual withdrawal of the sheath and dilator, the tip was observed to engage the fossa ovalis (indicated by a sudden leftward displacement). MELISSA projection demonstrated a retroaortic position (posterior to the catheter recording His bundle potential) and the ICE catheter was manipulated to demonstrate tenting of the fossa ovalis. Then, under continuous pressure monitoring and in the KUWAITI projection, the Bebeto Versa Cross radiofrequency wire was advanced into the left atrium. The left atrial pressure was recorded in the recording system and demonstrated a typical waveform. The dilator was then advanced over the wire into the left atrium. The dilator and the pigtail wire were carefully removed under negative pressure to avoid introducing any air bubble into the left atrium. The sheath was then carefully aspirated to remove all air before infusing saline/inserting a catheter. 35mm Farawave ablation catheter was placed in the left atrium. Mapping of the left atrium After transseptal access, the Farawave catheter was then advanced into the left atrium. The anatomy of the left atrium was built using the TicTacTi mapping system and activation, voltage mapping of the left atrium was performed. 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 Posterior wall showed normal voltage with frequent PACs noted with catheter manipulation. Pulsed field ablation for pulmonary vein isolation A The Shared Webve pulsed field ablation catheter was positioned in the left atrium using an Faradrive sheath over a 0.035 Merit Multani J-tipped wire. The position was confirmed with ICE and electroanatomic mapping. Using the ablation catheter, several applications of pulsed field energy were delivered for wide area circumferential ablation of all four pulmonary veins at 2.0 kPA. A minimum of 8 applications were applied in each pulmonary vein antrum in various configurations. Entrance and exit block were confirmed in all four pulmonary veins using HD grid catheter. A total of 32 pulsed field ablation lesions was administered during this procedure. After pulmonary vein isolation, we performed burst atrial pacing up to 250 ms from RA and LA on and off isuprel with no inducible tachycardia or extra pulmonary triggers for atrial fibrillation. The catheter and sheath were pulled back to the right atrium. Protamine was administered to reverse the effects of heparin. All catheters were removed, and hemostasis achieved with manual compression and figure of eight sutures. The patient was then transported to recovery post-procedure in a stable condition. Complications: none Estimated blood loss - 10 cc Summary: 1. Paroxysmal atrial fibrillation status post successful isolation of all four pulmonary veins utilizing pulsed field ablation with confirmation of bidirectional block. 2. 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 3. No other inducible SVT or extrapulmonary triggers of atrial fibrillation noted. Recommendations: 1. Bedrest for 4 hours with telemetry; if neither arrhythmias nor complications related to the procedure are observed, the patient may be considered for discharge tomorrow. 2. Medications are as per the discharge summary and medications list. 3. Follow up: Patient will have 4-6 week follow up in clinic with ECG prior. Routine follow up thereafter. Abdi Cerda M.D. 09/15/2024 us Abdi Cerda MD V BELT BUILDER Final Res ult * (ABNORMAL) POCT ACTIVATED CLOTTING TIME - ISTAT DOCKED DEVICE (09/15/2024 4:29 PM CATECHIST) Only the most recent of4 resultswithin the time period is included. ACTIVATED CLOTTING TIME (ACT HMT OR LMT) 354(H) 74 - 137 SEC 09/16/2024 6:06 AM CATECHIST [facility] 09/15/2024 4:29 PM CATECHIST us Abdi Cerda MD POCT ORDERABLES - DEVICE Final Result Performing Organization Address [facility] Co de Phone Number [facility] [address] [id number], [phone] * ORDER FRESH FROZEN PLASMA, 4 Units (09/15/2024 12:07 PM CATECHIST) UNITS ORDERED 4 09/15/2024 12:06 PM CATECHIST [facility] 09/15/2024 12:0 7 PM CATECHIST us Abdi Cerda MD BLOOD BANK PRODUCT ORDERA BLES Final Result Performing Organization Address [facility] Co de Phone Number [facility] [address] [place] [address], [phone] * TYPE & SCREEN (09/06/2024 11:49 AM CATECHIST) ABO/RH O NEGATIVE 09/06/2024 1:19 PM CATECHIST [facility] ANTIBODY SCREEN NEGATIVE 09/06/2024 1:19 PM CATECHIST [facility] SAMPLE EXPIRATION 09/18/2024,2 359 09/06/2024 12:03 PM CATECHIST [facility] 09/06/2024 11:4 9 AM CATECHIST Abdi Cerda MD BLOOD BANK TEST ORDERABLE S Final Result [facility] [address] [place] [address], [phone] * ELECTROCARDIOGRAM (09/06/2024 10:48 AM CATECHIST) 09/06/2024 10:4 8 AM CATECHIST Narrative [facility] - 09/13/2024 5:58 AM CATECHIST [facility] [address] [place] [address] Test Date: 2024-09-06 Pat Name: RAFY VERONICA Department: 105 Room: Gender: Male Linux Programmer: : 1955 Requested By: ABDI CERDA Order Number: [id number] Reading MD: Abdi Cerda Measurements Intervals [place] Rate: 76 P: -4 TN: 153 QRS: -28 QRSD: 102 T: 11 QT: 377 QTc: 425 Interpretive Statements SINUS RHYTHM BORDERLINE LEFT AXIS DEVIATION VOLTAGE CRITERIA FOR [facility] CHIST Procedure Note Abdi Cerda MD - 09/13/2024 [facility] [address] [place] [address] Test Date: 2024-09-06 Pat Name: RAFY VERONICA Department: 105 Room: Gender: Male Linux Programmer: : 1955 Requested By: ABDI CERDA Order Number: [id number] Reading : Abdi Cerda Measurements Intervals [place] Rate: 76 P: -4 TN: 153 QRS: -28 QRSD: 102 T: 11 QT: 377 QTc: 425 Interpretive Statements SINUS RHYTHM BORDERLINE LEFT AXIS DEVIATION VOLTAGE CRITERIA FOR [facility] Abdi eCrda MD PROCEDURES-ORDERABLE NO C HARGE Final Result [facility] * CT HEART DIAG CALCIUM SCORE (08/04/2024 2:53 PM CATECHIST) Anatomical Region Laterality Modality Computed Tomogra phy 08/06/2024 2:25 PM CATECHIST Addenda Addendum by Dima Cabrera MD on 08/08/2024 1:10 PM CATECHIST [place] [address] Coronary artery origins are normal with left coronary originating from left cusp and right coronary originating from right cusp. The total calcium score of 51.9 which is 14 percentile in age and gender matched population. Coronary Artery Score Left Main (LM) 0.00 Left Anterior Descending (LAD) 36.0 Left Circumflex (LCX) 0 Right Coronary Artery (RCA) 15.9 Total Agatston Score 51.9 Atherosclerotic thoracic aorta. Posterior mitral annular calcification. This examination is not to be considered a substitute for a clinical examination by a physician. Coronary calcium scoring is intended to be a risk assessment test for coronary artery disease, and the results of this examination should be taken into careful consideration by the patient's own physician in the context of other factors such as relevant history, physical examination, and any other indicated investigations. All reference calcium scores contained in this report were generated from Electron Beam Tomography, or an equivalent technology. Please bear this provision in mind when reviewing this report. Ordered By: DIMA CABRERA Interpreted By: Dima Cabrera, 08/08/2024 1:08 PM Impressions 08/06/2024 2:31 PM CATECHIST IMPRESSION: 1. Total calcium score and other cardiac findings interpreted by cardiology service. 2. No suspicious lung nodule, mass, or consolidation in the visualized lungs. Ordered By: DIMA CABRERA Interpreted By: Chuck England MD, 08/06/2024 2:25 PM Narrative 08/06/2024 2:31 PM CATECHIST [address] [address] EXAMINATION: CARDIAC CT - CORONARY CALCIUM CT. LUNG OVER READ. DATE: 08/04/2024 HISTORY: 69-year old male for coronary artery disease risk assessment. COMPARISON: None. TECHNIQUE: Multidetector coronary computerized tomography was obtained using prospective ECG gating. No intravenous contrast material was administered. A dose lowering technique was used for this procedure, which may include, but is not limited to, dose reduction technique, automated exposure control, the use of iterative reconstruction, and ALARA (As Low As Reasonably Achievable) / Image Gently techniques. Procedure Complications/Allergic reactions: None. Coronary calcium CT quality: Determined by cardiology service. FINDINGS: AGATSTON SCORE AND OTHER CARDIAC FINDINGS: Interpreted by cardiology service. EXTRACARDIAC FINDINGS: The visible lungs contain no suspicious lung nodule, mass, consolidation. The visualized thoracic aorta is atherosclerotic. Visualized pulmonary artery appears normal. Spondylosis. Procedure Note Chuck England MD / Dima Cabrera MD - 08/06/[address] [address] EXAMINATION: CARDIAC CT - CORONARY CALCIUM CT. LUNG OVER READ. DATE: 08/04/2024 HISTORY: 69-year old male for coronary artery disease risk assessment. COMPARISON: None. TECHNIQUE: Multidetector coronary computerized tomography was obtainedusing prospective ECG gating. No intravenous contrast material wasadministered. A dose lowering technique was used for this procedure, whichmay include, but is not limited to, dose reduction technique, automatedexposure control, the use of iterative reconstruction, and ALARA (As LowAs Reasonably Achievable) / Image Gently techniques. Procedure Complications/Allergic reactions: None. Coronary calcium CT quality: Determined by cardiology service. FINDINGS: AGATSTON SCORE AND OTHER CARDIAC FINDINGS: Interpreted by cardiologyservice. EXTRACARDIAC FINDINGS: The visible lungs contain no suspicious lung nodule, mass, consolidation.The visualized thoracic aorta is atherosclerotic. Visualized pulmonaryartery appears normal. Spondylosis. IMPRESSION: 1. Total calcium score and other cardiac findings interpreted bycardiology service. 2. No suspicious lung nodule, mass, or consolidation in the visualizedlungs. Ordered By: DIMA CABRERA Interpreted By: Chuck England MD, 08/06/2024 2:25 PM us Dima Cabrera MD CT Edited Result - Final from Last 3 Months Insurance MEDICARE [employer] Advance Directives * Full Code (Latest Code Status on File) Date Activated Date Inactivated Comments 09/15/2024 5:41 PM 09/16/2024 1:15 PM * Full Code Date Activated Date Inactivated Comments 07/10/2022 5:39 AM 07/11/2022 3:51 PM Care Teams Macerator Operator Relationship Specialty Start Date End Date Yoana Bolden MD [address] [place] [address] PCP - General INTERNAL MEDICINE 02/22/22 Ry Fuller MD [address] [place] [address] Plant Specialist CLINICAL CARDIAC ELECTROPHYSIOLOGY 02/22/22 Dima Cabrera MD [address] [place] [address] Consulting Physician CARDIOVASCULAR DISEASE 05/21/22
--- OUTSIDE RECORDS SUMMARY | 2024-11-01 10:07 | XMS_ITS ---
Author Organization Unknown Address [address] [place] [phone] Phone Care Team Providers Care Associate Theatre Professor Name Role Phone DEBORAH CH Attending Unavailable KIMI LEES Primary Unavailable Social History Type Status Start Date End Date Code Code Syst em Smoking History Never smoker (Never Smoked) [id number] SNOMED CT Sex Male Hospital Discharge Instructions Should you have any questions prior to discharge, please contact a member of your healthcare team. If you have left the hospital and have any questions, please contact your primary care physician. Reason For Referral No Data Found Plan of Treatment No Data Found Encounters Encounter Diagnosis Start Date Code Code Sys tem Persistent atrial fibrillation 07/08/2024 [id number] SNOMED-CT Personal Care Team Section Performer Name Performer Role Active Date Inactive BRAD Toney PCP - Primary care physician 2024-07-05 2024-07-08 YOANA BOLDEN PCP - Primary care physician 2024-07-08
[2024-11-01 10:26] LABS: Alanine Aminotransferase 27 U/L (16-63); Albumin Level 3.5 g/dL (3.4-5.0); Alkaline Phosphatase 69 U/L (46-116); Anion Gap 4 mmol/L (4-12); Aspartate Amino Transferase 21 U/L (15-37); Bilirubin,Total 1.7 mg/dL (0.00-1.00); Blood Urea Nitrogen 9 mg/dL (7-18); Calcium 8.7 mg/dL (8.5-10.1); Carbon Dioxide 35 mmol/L (21-32); Chloride 107 mmol/L (98-108); Cholesterol 165 mg/dL (0-200); Creatine Kinase 96 U/L (39-308); Estimated Glomerular Filt Rate > 60; Free T4 Free Thyroxine 0.93 ng/dL (0.76-1.46); Glucose 111 mg/dL (70-99); HDL Direct 60 mg/dL (40-60); LDL Cholesterol Calculated 92 mg/dL (<130); Osmolality Calculated 301 mOsm/kg (285-295); Prostate Specific Antigen 3.7 ng/mL (< OR = 4.0); Sodium 146 mmol/L (136-145); Thyroid Stimulating Hormone 1.91 uIU/mL (0.36-3.74); Total Protein 6.5 g/dL (6.4-8.2); Triglycerides 66 mg/dL (0-150); Vitamin B12 672 pg/mL (193-986)
[2024-11-01 16:23] LABS: Free T3 2.48 pg/mL (2.18-3.98)
== END 2024-11-01 09:21 | disposition home or self-care (01) ==
LOC: CHSLAB 09:21
PROVIDERS: PCP Internal Medicine; Visit Provider Internal Medicine
DX: G62.9 Polyneuropathy, unspecified (principal); I10 Essential (primary) hypertension; R73.01 Impaired fasting glucose; E78.2 Mixed hyperlipidemia; Z12.5 Encounter for screening for malignant neoplasm of prostate
CPT/HCPCS: 36415; 80053; 80061; 81001; 82550; 82607; 83036; 84153; 84439; 84443; 84481; 85027; G0103

== ENCOUNTER 2024-11-16 08:47 | Outpatient (CLI) | payer MEDICARE, OTHER, SELFPAY ==
--- NOTE | ~2024-11-16 | CT_ITS ---
CT scan of the Neck Technique: 2.5 mm axial scans were obtained through the neck after intravenous administration of 75 c c Omnipaque 350. Coronal and sagittal reconstructions of the neck were obtained. Dose reduction techn ique was used on this scan by utilizing automated exposure control and iterative reconstruction techn ique. The dose-length product (DLP) was 502.13 mGy-cm. Clinical History: Left cervical tenderness, swelling, hoarseness Findings: There is a homogeneous, circumscribed mass in the left neck along the inferior margin of the parotid gland and the posterior margin of the left submandibular gland, measuring 2.5 x 2.1 x 3.7 cm in size (axial image 36, coronal image 49). The parotid and submandibular glands appear normal. No other abno rmal mass lesion seen. No other lymphadenopathy evident. The pharyngeal mucosal spaces appear normal. No soft tissue masses are seen in the neck. The thyroid gland appears normal. Images of the lung apices reveal no abnormalities. Impression: 2.5 x 2.1 x 3.7 cm circumscribed homogeneous mass in the left neck along the inferior margin of the l eft parotid gland, as detailed above. Neoplastic lesion is suspected, including both benign and malig nant etiologies. Recommend tissue sampling versus additional imaging workup. Reviewed, dictated and finalized at location M. Impression: 2.5 x 2.1 x 3.7 cm circumscribed homogeneous mass in the left neck along the in ferior margin of the left parotid gland, as detailed above. Neoplastic lesion i s suspected, including both benign and malignant etiologies. Recommend tissue s ampling versus additional imaging workup.
--- OUTSIDE RECORDS SUMMARY | 2024-11-16 09:17 | XMS_ITS ---
Author Organization Unknown Address [address] [place] [phone] Phone Care Team Providers Care Opto Mechanical Engineer Name Role Phone DEBORAH CH Attending Unavailable KIMI LEES Primary Unavailable Social History Type Status Start Date End Date Code Code Syst em Smoking History Never smoker (Never Smoked) [id number] SNOMED CT Sex Male Hospital Discharge Instructions [...] Code Sys tem Persistent atrial fibrillation 07/08/2024 [id number] SNOMED-CT Personal Care Team Section Performer Name Performer Role Active Date Inactive BRAD Toney PCP - Primary care physician 2024-07-05 2024-07-08 YOANA BOLDEN PCP - Primary care physician 2024-07-08
--- OUTSIDE RECORDS SUMMARY | 2024-11-16 09:17 | XMS_ITS | Clinical Summary ---
Author Organization [facility] Address [address] [place] [address] Care Team Providers Care Supercalender Operator Name Role Phone Yoana Bolden MD Primary Care Provider Ry Fuller MD Unavailable Unava Char Tam MD Unavailable Allergies Active Allergy Reactions [...] Noted Date Diagnosed Date SVT (supraventricular tachycardia) ([facility]) Chronic anticoagulation 09/06/2024 Paroxysmal atrial fibrillation ([facility]HCC [facility]) 07/10/2022 Encounters Date Type Department Care Team Description 10/12/2024 Telephone [facility] [address] [place] [address] Abdi Cerda MD Question 09/21/2024 Telephone [facility] [address] [place] [address] Abdi Cerda MD Question 09/15/2024 2:31 PM MANAGER MEDICAL DEVICE Anesthesia Event [facility] [address] [place] [address] Pati Eldridge MD Bracco, Kendra A, RN 09/15/2024 11:54 AM MANAGER MEDICAL DEVICE - 09/16/2024 11:05 AM MANAGER MEDICAL DEVICE Hospital Encounter [facility] [address] [place] [address] Abdi Cerda MD Discharge Disposition: Home or Self Care (Routine Discharge) 09/15/2024 Travel 09/06/2024 11:39 AM MANAGER MEDICAL DEVICE - 09/06/2024 11:59 PM MANAGER MEDICAL DEVICE Hospital Encounter [facility] [address] [place] [address] Abdi Cerda MD Discharge Disposition: Home or Self Care (Routine Discharge) 09/06/2024 11:00 AM MANAGER MEDICAL DEVICE Office Visit [facility] [address] [place] [address] Deloris Sinha PA-C Follow Up 09/06/2024 Travel 09/06/2024 Orders Only [facility] [address] [place] [address] Abdi Cerda MD 09/02/2024 Orders Only [facility] [address] [place] [address] Deloris Sinha PA-C 08/26/2024 Telephone [facility] [address] [place] [address] Char Velazquez MD Results 08/18/2024 Telephone [facility] [address] [place] [address] Abdi Cerda MD Schedule Procedure from Last 3 Months Family History Medical [...] 07/10/2022 How often do you attend chur ch or buddhist services? More than 4 times per year 07/10/2022 Do you belong to any clubs o r organizations such as alevism groups, unions, fraternal or athletic groups, or [...] Recorded Patient Health Questionnaire-2 Score 0 07/10/2022 [facility] Questionnaire Answer Date [...] money to buy more. Never true 07/10/20 22 Within the past 12 months, t he [...] place to sleep or slept in a [place] health care facility (including now)? No 07/10/2022 Sex and Gender Information Value Date Recorded Sex Assigned at Male 08/04/2024 2:13 PM MANAGER MEDICAL DEVICE Legal Sex Male 11:16 PM MANAGER MEDICAL DEVICE Gender Identity Male 04/03/2022 7:22 AM CDT Sexual Orientation Not on file Last Filed Vital Signs Vital Sign Reading Time Taken Comments Blood Pressure 142/77 09/16/2024 7:57 AM MANAGER MEDICAL DEVICE Pulse 77 09/16/2024 7:57 AM MANAGER MEDICAL DEVICE Temperature 36.9 C (98.4 F) 09/16/2024 7:57 AM MANAGER MEDICAL DEVICE Respiratory Rate 20 09/16/2024 7:57 AM MANAGER MEDICAL DEVICE Oxygen Saturation 92% 09/16/2024 7:57 AM MANAGER MEDICAL DEVICE Inhaled Oxygen Concentration - - Weight 92.5 kg (203 lb 14.8 oz) 09/16/2024 5:00 AM MANAGER MEDICAL DEVICE Height 180.3 cm (5' 10.98 ) 09/15/2024 12:01 PM MANAGER MEDICAL DEVICE Body Mass Index 28.45 09/15/2024 12:01 PM MANAGER MEDICAL DEVICE Plan of Treatment Upcoming Encounters Date Type Department Care Team (Late st Contact Info) Description 12/16/2024 11:00 AM CDT Office Visit [facility] [address] [place] [address] Deloris Sinha PA-C [address] [place] [address] 07/28/2025 2:00 PM MANAGER MEDICAL DEVICE Office Visit [facility] [address] [address] Char Velazquez MD [address] [place] [address] Health Maintenance Due Date Last Done Comments Colorectal Cancer Screening Colonoscopy (10 Years) 1955 Hepatitis C 1972 DTaP, Tdap and Td Vaccines ( 1 - Tdap) 1973 Pneumococcal Vaccine: 50+ Ye ars (1 of 1 - PCV) 2004 Zoster Vaccines (1 of 2) 2004 RSV Immunization or 60+ Years (1 - Risk 60-74 years 1-dose series) 2014 Annual Medicare Wellness Visit 2019 COVID-19 Vaccine (2023-2 5 season) 2024 [...] Mata, RN Medical Devices Implanted Type Area Strategic Client Executive Device Identifier Shelf Expiration Date Model / Serial / Lot Tecnis 1 Piece Iol With Tecnis Simplicity Delivery System Implanted:Qty: 1 on 07/19/2024 by Sherif Young MD at [facility] Right: Eye [employer] 08/24/2025 / [id number] / Procedures Procedure Name Priority Date/Time Associated Diagnosis Comments ECG 12-LEAD Routine 09/16/2024 6:33 AM MANAGER MEDICAL DEVICE Paroxysmal atrial fibrillation (CMS/HCC HHS/HCC) SVT (supraventricular tachycardia) (HHS/HCC) BASIC METABOLIC PANEL Routine 09/16/2024 4:36 AM MANAGER MEDICAL DEVICE Paroxysmal atrial fibrillation (CMS/HCC HHS/HCC) SVT (supraventricular tachycardia) (HHS/HCC) PROTHROMBIN TIME, VENOUS Routine 025 4:36 AM MANAGER MEDICAL DEVICE Paroxysmal atrial fibrillation (CMS/HCC HHS/HCC) SVT (supraventricular tachycardia) (HHS/HCC) CBC W/DIFF AUTOMATED Routine 09/16/2024 4:36 AM MANAGER MEDICAL DEVICE Paroxysmal atrial fibrillation (CMS/HCC HHS/HCC) SVT (supraventricular tachycardia) (HHS/HCC) ECG 12-LEAD Routine 09/15/2024 7:05 PM MANAGER MEDICAL DEVICE Paroxysmal atrial fibrillation (CMS/HCC HHS/HCC) SVT (supraventricular tachycardia) (HHS/HCC) XA A-FIB ABLATION Routine 09/15/2024 5:1 1 PM MANAGER MEDICAL DEVICE Persistent atrial fibrillation (CMS/HCC HHS/HCC) POCT ACTIVATED CLOTTING TIME - ISTAT DOCKED DEVICE Routine 09/15/2024 4:29 PM MANAGER MEDICAL DEVICE POCT ACTIVATED CLOTTING TIME - ISTAT DOCKED DEVICE Routine 09/15/2024 4:04 PM MANAGER MEDICAL DEVICE POCT ACTIVATED CLOTTING TIME - ISTAT DOCKED DEVICE Routine 09/15/2024 3:37 PM MANAGER MEDICAL DEVICE POCT ACTIVATED CLOTTING TIME - ISTAT DOCKED DEVICE Routine 09/15/2024 3:16 PM MANAGER MEDICAL DEVICE ECG 12-LEAD Routine 09/15/2024 12:19 PM MANAGER MEDICAL DEVICE ORDER FRESH FROZEN PLASMA Routine 09/15/2024 12:07 PM MANAGER MEDICAL DEVICE TYPE & SCREEN Routine 09/06/2024 11:49 AM MANAGER MEDICAL DEVICE Paroxysmal atrial fibrillation (CMS/HCC HHS/HCC) CBC W/DIFF AUTOMATED Routine 09/06/2024 11:49 AM MANAGER MEDICAL DEVICE Paroxysmal atrial fibrillation (CMS/HCC HHS/HCC) BASIC METABOLIC PANEL Routine 09/06/2024 11:49 AM MANAGER MEDICAL DEVICE Paroxysmal atrial fibrillation (CMS/HCC HHS/HCC) ELECTROCARDIOGRAM (NON MIDMARK ACQUIRED) Routine 09/06/2024 10:48 AM MANAGER MEDICAL DEVICE Paroxysmal atrial fibrillation (CMS/HCC HHS/HCC) from Last 3 Months Results * ECG 12 lead - in AM (09/16/2024 6:33 AM MANAGER MEDICAL DEVICE) Only the most recent of3 resultswithin the time period is included. 09/16/2024 6:33 AM MANAGER MEDICAL DEVICE Narrative [facility] - 09/16/2024 7:12 AM MANAGER MEDICAL DEVICE [place] [address] [place] [address] Test Date: 2024-09-16 Pat Name: RAFY MARTIN Department: 1 Room: [facility] Gender: Male Cream Ripener: : 1955 Requested By: ABDI CERDA Order Number: [id number] Reading MD: Abdi Cerda Measurements Intervals Downs Rate: 80 P: 3 MO: 154 QRS: -17 QRSD: 107 T: 51 QT: 393 QTc: 453 Interpretive Statements SINUS RHYTHM INCOMPLETE RIGHT BUNDLE BRANCH BLOCK GER MEDICAL DEVICE Procedure Note Abdi Cerda MD - 09/16/2024 [place] [place] [address] Test Date: 2024-09-16 Pat Name: RAFY MARTIN [facility] Gender[facility] Cream Ripener: : 1955 Requested By: ABDI CERDA Order Number: [id number] Reading : Abdi Cerda Measurements Intervals Downs Rate: 80 P: 3 MO: 154 QRS: -17 QRSD: 107 T: 51 QT: 393 QTc: 453 Interpretive Statements SINUS RHYTHM INCOMPLETE RIGHT BUNDLE BRANCH BLOCK GER MEDICAL DEVICE Abdi Cerda MD ECG ORDERABLES Final Res ult [facility] * PROTIME/INR, VENOUS (09/16/2024 4:36 AM MANAGER MEDICAL DEVICE) PROTIME 12.2 9.4 - 12.5 SEC 09/16/2024 5:[address] [facility] INR 1.1 0.8 - 1.1 09/16/2024 5:[address] [facility] 09/16/2024 4:36 AM MANAGER MEDICAL DEVICE Abdi Cerda MD LABORATORY Final Res ult Performing Organization Address [facility] [place]/ZIP Co de Phone Number [facility] [address] [place] [address], [id number] * (ABNORMAL) BASIC METABOLIC PANEL (09/16/2024 4:36 AM MANAGER MEDICAL DEVICE) Only the most recent of2 resultswithin the time period is included. SODIUM S/P/B 142 136 - 145 MMOL/L 09/16/2024 5:26 AM [facility] POTASSIUM S/P/B 3.8 3.5 - 5.1 MMOL/L 09/16/2024 5:26 AM [facility] CHLORIDE S/P/B 109 97 - 115 MMOL/L 09/16/2024 5:26 AM [facility] CO2 27.9 21.0 - 32.0 MMOL/L 09/16/2024 5:26 AM [facility] GLUCOSE 107(H) 74 - 106 MG/DL 09/16/2024 5:26 AM [facility] BUN 9 7 - 18 MG/DL 09/16/2024 5:26 AM [facility] CREATININE S/P/B 0.90 0.70 - 1.30 MG/DL 09/16/2024 5:26 AM [facility] CALCIUM S/P/B 8.6 8.5 - 10.1 MG/DL 09/16/2024 5:26 AM [facility] ANION GAP 5.1 2.0 - 10.0 MMOL/L 09/16/2024 5:26 AM [facility] OSMOLALITY (CALC) 293 MOSM/KG 025 5:26 AM [facility] Comment:REFERENCE RANGE NOT ESTABLISHED GFR ESTIMATE >90 >90 ML/MIN/1. 73 M2 09/16/2024 5:26 AM [facility] GFR NOTES GFR REFERENCE S: 09/16/2024 5:26 AM [facility] Comment: THE ESTIMATED GFR IS CALCULATED [...] FAILURE: <15 ml/min/1.73 m2 09/16/2024 4:36 AM MANAGER MEDICAL DEVICE Abdi Cerda MD LABORATORY Final Res ult [facility] [address] [place] [address], [id number] * (ABNORMAL) CBC W/DIFF AUTOMATED (09/16/2024 4:36 AM MANAGER MEDICAL DEVICE) Only the most recent of2 resultswithin the time period is included. WBC 6.21 4.00 - 10.80 x10'3/uL 09/16/2024 5:02 AM [facility] RBC 4.51 4.50 - 6.10 x10'6/uL 09/16/2024 5:02 AM [facility] HGB 13.2 12.0 - 16.0 G/DL 09/16/2024 5:02 AM [facility] HCT 40.0 37.0 - 52.0 % 09/16/2024 5:02 AM [facility] MCV 88.7 78.0 - 100.0 FL 09/16/2024 5:02 AM [facility] MCH 29.3 27.0 - 31.0 PG 09/16/2024 5:02 AM [facility] MCHC 33.0 33.0 - 36.0 G/DL 09/16/2024 5:02 AM [facility] RDW 13.0 11.5 - 14.5 % 09/16/2024 5:02 AM [facility] PLT 111(L) 150 - 350 x10'3/uL 09/16/2024 5:02 AM [facility] MPV 11.4(H) 7.4 - 10.4 FL 09/16/2024 5:02 AM [facility] DIFFERENTIAL TYPE AUTOMATED DIFFERENTIAL 09/16/2024 5:02 AM [facility] SEG NEUTROPHILS 58.1 % 5:02 AM [facility] LYMPHOCYTES 26.2 % 09/16/2024 5:02 AM [facility] MONOCYTES 12.6 % 09/16/2024 5:02 AM [facility] EOSINOPHILS 2.6 % 09/16/2024 5:02 AM [facility] BASOPHILS 0.3 % 09/16/2024 5:02 AM [facility] IMMATURE GRANS % 0.2 % 09/16/19 5:02 AM [facility] ABS. NEUTROPHILS 3.61 1.60 - 8.30 x10'3/uL 09/16/2024 5:[address] [facility] ABS. LYMPHOCYTES 1.63 0.80 - 4.70 x10'3/uL 09/16/2024 5:[address] [facility] ABS. MONOCYTES 0.78 0.00 - 1.50 x10'3/uL 09/16/2024 5:[address] [facility] ABS. EOSINOPHILS 0.16 0.00 - 0.40 x10'3/uL 09/16/2024 5:[address] [facility] ABS. BASOPHILS 0.02 0.00 - 0.20 x10'3/uL 09/16/2024 5:[address] [facility] ABS. IMMATURE GRANULOCYTES 0.01 0.00 - 0.03 x10'3/uL 09/16/2024 5:[address] [facility] ABS. NUCLEATED RBC'S 0.00 0.00 - 0.01 x10'3/uL 09/16/2024 5:[address] [facility] NRBC % 0.0 % 09/16/2024 5:[address] [facility] 09/16/2024 4:36 AM MANAGER MEDICAL DEVICE Abdi Cerda MD LABORATORY Final Res ult [facility] [address] [place] [address], [id number] * XA A-FIB ABLATION (09/15/2024 5:11 PM MANAGER MEDICAL DEVICE) Anatomical Region Laterality Modality Cardiac Machine Hand Narrative 09/15/2024 5:03 PM MANAGER MEDICAL DEVICE Abdi Cerda MD 09/15/2024 5:17 PM Cardiac Electrophysiology Procedure Note Patient name: Rafy Martin : 1955 YOANA BOLDEN MD LOS: 0 days DATE OF PROCEDURE: 09/15/2024 SENIOR SECURITY ENGINEER: ABDI CERDA MD Procedure: Atrial fibrillation pulmonary [...] by pulmonary vein isolation 3D mapping using Ensite X mapping system [66040] Left atrial pacing and recording [35169] Transseptal catheterization for left atrial access [85935] Intracardiac Echocardiography for procedure [84056] Administration of electrophysiologically active medication - isuprenaline [95404] Indications: Symptomatic paroxysmal atrial fibrillation SVT Fluoroscopic [...] the right atrium for ultrasound mapping. A KnockaTV versa cross sheath was advanced from the right femoral vein and used for achieving transseptal access and later switched for Faradrive sheath through which the mapping of the left atrium and later ablation, using a 31mm Alpine scientific Farawave Pulsed Field ablation catheter. Twelve [...] the procedure log. 3D Mapping using the Ensite Precision mapping system [69341] Complex 3D mapping was performed. The Ensite [...] were completed. Baseline intervals were as follows: MO 122ms QRS 108ms QT 370ms RR 648ms [...] fibrillation. Effect of electrophysiologically-active medication - Isuprenaline [38323]: Medication Dosage/route Effects Isuprenaline up to 2mcg/min To facilitate induction of SVT, Look for extrapulmonary triggers for AF Intracardiac Echo [31320] utilized for ablation procedure Once coronary sinus catheter was placed and prior to transseptal catheterization, the [facility] Viewflex ICE catheter was manipulated into [...] ICE and mapping system guidance in the JORDANIAN projection. The right atrial pressure was recorded [...] under continuous pressure monitoring and in the JORDANIAN projection, the Bebeto Versa Cross radiofrequency wire [...] the left atrium was built using the Ensite precision mapping system and activation, voltage mapping of the left atrium was performed. 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 Posterior wall showed normal voltage with frequent PACs noted with catheter manipulation. Pulsed field ablation for pulmonary vein isolation A MET Tech pulsed field ablation catheter was positioned in [...] Cerda M.D. 09/15/2024 us Abdi Cerda MD POLYSOMNOGRAPHY TECH Final Res ult * (ABNORMAL) POCT ACTIVATED CLOTTING TIME - ISTAT DOCKED DEVICE (09/15/2024 4:29 PM MANAGER MEDICAL DEVICE) Only the most recent of4 resultswithin the time period is included. ACTIVATED CLOTTING TIME (ACT HMT OR LMT) 354(H) 74 - 137 SEC 09/16/2024 6:[address] [facility] 09/15/2024 4:29 PM MANAGER MEDICAL DEVICE us Abdi Cerda MD POCT ORDERABLES - DEVICE Final Result Performing Organization Address [facility]/ZIP Co de Phone Number [facility] [address] [place] [address], [place] [phone] * ORDER FRESH FROZEN PLASMA, 4 Units (09/15/2024 12:07 PM MANAGER MEDICAL DEVICE) UNITS ORDERED 4 09/15/2024 12:[address] [facility] 09/15/2024 12:0 7 PM MANAGER MEDICAL DEVICE us Abdi Cerda MD BLOOD BANK PRODUCT ORDERA BLES Final Result Performing Organization Address [facility] de Phone Number [facility] [address] [place] [address], [place] [phone] * TYPE & SCREEN (09/06/2024 11:49 AM MANAGER MEDICAL DEVICE) ABO/RH O NEGATIVE 09/06/2024 1:[address] [facility] ANTIBODY SCREEN NEGATIVE 09/06/2024 1:[address] [facility] SAMPLE EXPIRATION 09/18/2024,2 359 09/06/2024 12:[address] [facility] 09/06/2024 11:4 9 AM MANAGER MEDICAL DEVICE us Abdi Cerda MD BLOOD BANK TEST ORDERABLE S Final Result Performing Organization Address [facility] Co de Phone Number [facility] [address] [place] [address], [place] [phone] * ELECTROCARDIOGRAM (09/06/2024 10:48 AM MANAGER MEDICAL DEVICE) 09/06/2024 10:4 8 AM MANAGER MEDICAL DEVICE N[facility]ative [facility] 09/13/2024 5:58 AM MANAGER MEDICAL DEVICE [facility] [address] [place] [address] Test Date: 2024-09-06 Pat Name: RAFY MARTIN Department: 105 Room: Gender: Male Cream Ripener: : 1955 Requested By: ABDI CERDA Order Number: [id number] Reading MD: Abdi Cerda Measurements Intervals Downs Rate: 76 P: -4 MO: 153 QRS: -28 QRSD: 102 T: 11 QT: 377 QTc: 425 Interpretive Statements SINUS RHYTHM BORDERLINE LEFT AXIS DEVIATION VOLTAGE CRITERIA FOR [facility] GER MEDICAL DEVICE Procedure Note Abdi Cerda MD - 09/13/2024 [facility] [address] [place] [address] Test Date: 2024-09-06 Pat Name: RAFY MARTIN Department: 105 Room: Gender: Male Cream Ripener: : 1955 Requested By: ABDI CERDA Order Number: [id number] Reading MD: Abdi Cerda Measurements Intervals Downs Rate: 76 P: -4 MO: 153 QRS: -28 QRSD: 102 T: 11 QT: 377 QTc: 425 Interpretive Statements SINUS RHYTHM BORDERLINE LEFT AXIS DEVIATION VOLTAGE CRITERIA FOR [facility] GER MEDICAL DEVICE Abdi Cerda MD PROCEDURES-ORDERABLE NO C HARGE Final Result [facility] from Last 3 Months Insurance [place]ICARE [place] EXTENDED STAYS [facility] [employer] Advance Directives * Full Code (Latest Code Status on File) Date Activated Date Inactivated Comments 09/15/2024 5:41 PM 09/16/2024 1:15 PM * Full Code Date Activated Date Inactivated Comments 07/10/2022 5:39 AM 07/11/2022 3:51 PM Care Teams Supercalender Operator Relationship Specialty Start Date End Date Yoana Bolden MD [address] [place] [phone] PCP - General INTERNAL MEDICINE 02/22/22 Ry Fuller MD [address] [place] [address] EP Phone Representative CLINICAL CARDIAC ELECTROPHYSIOLOGY 02/22/22 Char Velazquez MD [address] [place] [address] Consulting Physician CARDIOVASCULAR DISEASE 05/21/22
--- OUTSIDE RECORDS SUMMARY | 2024-11-16 09:17 | XMS_ITS | Data Portability ---
Author Organization [facility], [facility] Office Address [address] [place] [address] Assessment No assessment recorded. Plan of Treatment Reminders Order Date Submit Date Provider Last Modified By Organization Details Last Modified Time Details Appointments None recorded. Lab None recorded. Referral None recorded. Procedures None recorded. Surgeries None recorded. Imaging None recorded. Medication Orders doxycyclin e monohydrat e 100 mg capsule 2018 019 [id number] [employer], [address], [place], [address], 9 16:52:37 Patient TargetsNo targets recorded. Patient Instructions Encounter Date Encounter Id Patient Instructions Last Modified By Organization Details Last Modified Time 05/19/2019 [id number] upper respirator y infection (cold): care instructions [email or web address] Not available 05/19/2019 16:52:14 Reason for Referral None Reported. Problems Name Problem SNOMED Code Status Onset Date Resolution Date Notes Provider Name and Address Organization Details Recorded Time Hypertensive disorder 37688225 Active 2018 [facility] 9 16:31:23 Large prostate 924987947 Active [address] [facility] 9 16:31:36 Anxiety 15833416 Active 2018 [facility] 16:31:48 Acid reflux 486817754 [facility] 16:[facility]57 Sinusitis 43835639 Active 2018 [facility] 16:32:16 Problem Notes None recorded. Procedures Surgical History Date Name Laterality Status Provider Name and Address Organization Details Recorded Time Cholecystectomy (Gallbladder) completed [facility] 05/19/2019 16:32:51 Unlisted px accessory sinus completed [facility] 05/19/2019 16:33:01 hernia repair completed [facility] 05/19/2019 16:33:17 Imaging Results None recorded. Procedure Notes None recorded. Medical Equipment None Reported. Allergies No known drug allergies Medications Name Sig Start Date Stop Date Status Note LastModified by Organization Details LastModified Time lisinopril 20 mg tablet Take 1 tablet every day by oral route. active Not Available Not Available No t Available tamsulosin 0.4 mg capsule Take 1 capsule every day by oral route. active Not Available Not Available No t Available doxycycline monohydrate 100 mg capsule Take 1 capsule twice a day by oral route for 10 days. 2018 active Not Available Not Available Not Avai lable alprazolam 0.25 mg disintegrati ng tablet Take 1 tablet 3 times a day by oral route. active Not Available Not Available No t Available Dexilant 60 mg capsule, delayed release Take 1 capsule every day by oral route for 56 days. active Not Available Not Available No t Available Flonase Allergy Relief 50 mcg/actuatio n nasal spray,suspen miesha [place] 1 spray every day by intranasal route. active Not Available Not Available No t Available Vitals Date Recorded Body weight Body mass index (BMI) Body height Respiratory rate Heart rate Oxygen saturation Oxygen saturation in Arterial blood by Pulse oximetry Body temperature Systolic blood pressure Diastolic blood pressure Provider Name and Address Organization Details Last Updated DateTime 9 55121.3 7 g 26.2 kg/m2 180.34 cm 16 /min 74 /min 96 % 96 % 98.3 [degF] 142 mm[Hg] 90 mm[Hg] [facility] 9 16:35:59 Social History Question Answer Notes LastModified by Organizat ion Details LastModified Time Tobacco Smoking Status Never Smoker [facility] 05/19/2019 16:32:30 How Often Do You Have A DRINK Containing ALCOHOL? Monthly Or Less Information not available 05/19/2019 What Was The Date Of Your Most Recent Tobacco Screening? 05/19/2019 Information not available 05/19/2019 Sex: Unknown Functional Status None recorded. Mental Status None recorded. Family History Nothing Reported. Medical History No medical history recorded. Past Encounters Encounter ID Performer Location Encounter Start Date Encounter Closed Date Diagnosis/Indication Diagnosis SNOMED-CT Code Diagnosis ICD10 Code Diagnosis Note [id number] JC Gomez [facility] [address] [place] [address],[place] [address] 05/19/2019 16:05:24 05/19/2019 16:51:56 Upper respiratory infection 89361628 J06.9 Health Concerns Section Related Observation LastModified by Organization Detai ls LastModified Time None Recorded Concern Status LastModified by Organization Details LastModified Time None Recorded Advance Directives Directive None Recorded Payers Encounter Date Sequence Insurance Name Policy Number Policy Espinosa Covered Member ID Espinosa Member ID Guarantor Name 05/19/2019 1 [place] Rafy Addison [id number] Rafy Addison 05/19/2019 2 [employer] (MEDICARE SUPPLEMENT) Rafy Addison [id number] Rafy Addison Notes Date Note Type Note Provider Name and Address Organization Details Recorded Time 05/19/2019 text/html Upper Respirator y SymptomsReported bypatient.Symptoms:cou gh; chest congestion; wheezing; sinus pain (forehead); nasal congestion; sinus pressure; post nasal drip; ears feel clogged, difficulty hearing Location:sinus/nasal; chest Quality:dry cough Severity:moderate Duration:8 weeks Context:no sick contacts; non-smoker Modifying Factors:sudafed decongestant medication, benadryl Associated Symptoms:no fever; no earache; no nausea; no vomiting;yellow-green, thick sputum;wheezing;nasal discharge; headache, dizziness JC Gomez [address], [place], [address], [facility] [employer] [facility] 05/19/2019 16:53:11
== END 2024-11-16 08:48 | disposition home or self-care (01) ==
PROVIDERS: PCP Internal Medicine; Visit Provider Internal Medicine
DX: M79.89 Other specified soft tissue disorders (principal); R49.0 Dysphonia; R22.1 Localized swelling, mass and lump, neck
CPT/HCPCS: 70491; Q9967